=== PATIENT | male | born 1985 | race Caucasian/White ===

== ENCOUNTER 2017-10-13 18:53 | Emergency (ER) | payer OTHER, SELFPAY ==
[2017-10-13] MEDS ORDERED: Adacel Vial IM ONE ×2 (19:10→19:12)
--- NOTE | 2017-10-13 19:15 | ERPHSYRPT ---
- History of Present Illness Time Seen by Provider: 10/13/17 19:05 Source: patient Exam Limitations: no limitations Patient Subjective Stated Complaint: Laceration to tip of right index finger after getting caught in "fan blade" from a car. Triage Nursing Assessment: Pt presents to the ED with complaints of laceration to tip of right index finger. Pt states approximately 30 minutes ago. Bleeding controlled on arrival. No distress noted. No other complaints. Physician History: 32 y/o male comes to the ER after getting his right index finger stuck in a fan blade. Pt states that the cut is deep but there is no bleeding upon arriving. Pt denies any pain. Last tetanus shot was over 5 years ago. Timing/Duration: today Location: extremities Possible Causes: other (fan blade) Associated Symptoms: denies symptoms, No numbness, No paresthesia Allergies/Adverse Reactions: No Known Drug Allergies Allergy (Unverified 01/20/16 21:55) Home Medications: Acyclovir 800 mg PO .PRN 01/20/16 [History] Levetiracetam [Levetiracetam] 250 mg PO BID 10/13/17 [History] Hx Tetanus, Diphtheria Vaccination/Date Given: No Hx Influenza Vaccination/Date Given: No Hx Pneumococcal Vaccination/Date Given: No Immunizations Up to Date: No - Review of Systems Constitutional: No Fever, No Chills Eyes: No Symptoms Ears, Nose, & Throat: No Symptoms Respiratory: No Cough, No Dyspnea Cardiac: No Chest Pain, No Edema, No Syncope Abdominal/Gastrointestinal: No Abdominal Pain, No Nausea, No Vomiting, No Diarrhea Genitourinary Symptoms: No Dysuria Musculoskeletal: No Back Pain, No Neck Pain Skin: Other (finger laceration), No Rash Neurological: No Dizziness, No Focal Weakness, No Sensory Changes Psychological: No Symptoms Endocrine: No Symptoms All Other Systems: Reviewed and Negative - Past Medical History Pertinent Past Medical History: Yes Neurological History: Migraines ENT History: No Pertinent History Cardiac History: Arrhythmia Respiratory History: No Pertinent History Endocrine Medical History: No Pertinent History Musculoskeletal History: No Pertinent History GI Medical History: No Pertinent History History: No Pertinent History Psycho-Social History: No Pertinent History Male Reproductive Disorders: No Pertinent History Other Medical History: SEVEREAL SETS OF STITCHES - Past Surgical History Past Surgical History: Yes Neuro Surgical History: No Pertinent History Cardiac: No Pertinent History Respiratory: No Pertinent History Gastrointestinal: No Pertinent History Genitourinary: No Pertinent History Musculoskeletal: Orthopedic Surgery Male Surgical History: No Pertinent History Other Surgical History: tonsils - Social History Smoking Status: Current every day smoker How long have you smoked: 21 years Exposure to second hand smoke: Yes Drug Use: none Patient Lives Alone: No - Nursing Vital Signs Nursing Vital Signs: Initial Vital Signs Temperature 98.0 F 10/13/17 19:00 Pulse Rate 79 10/13/17 19:00 Respiratory Rate 16 10/13/17 19:00 Blood Pressure 155/90 10/13/17 19:00 O2 Sat by Pulse Oximetry 97 10/13/17 19:00 Pain Scale Pain Intensity 0 - Physical Exam General Appearance: no apparent distress, alert Eye Exam: PERRL/EOMI, eyes nml inspection Ears, Nose, Throat Exam: normal ENT inspection, pharynx normal, moist mucous membranes Neck Exam: normal inspection, non-tender, supple, full range of motion Respiratory Exam: normal breath sounds, lungs clear, No respiratory distress Cardiovascular Exam: regular rate/rhythm, normal heart sounds Gastrointestinal/Abdomen Exam: soft, mass, No tenderness Back Exam: normal inspection, normal range of motion, No CVA tenderness, No vertebral tenderness Extremity Exam: normal inspection, normal range of motion, lacerations (0.5 cm laceration tip of right index finger) Neurologic Exam: alert, oriented x 3, cooperative, normal mood/affect, sensation nml, No motor deficits Skin Exam: normal color, warm, dry SpO2: 97 Oxygen Delivery: Room Air Procedures - Laceration/Wound Repair Right Upper Anterior Proximal Volar Finger Wound Location: Right, hand Wound Length (cm): 0.5 Wound's Depth, Shape: superficial Wound Explored: contaminated Irrigated: Yes Hibiclens Prep: Yes Wound Debrided: moderate Wound Repaired With: Steri-strips, Dermabond Layer Closure?: Yes - Course Nursing assessment & vital signs reviewed: Yes - Progress Progress: improved Progress Note: 10/13/17 19:13 See Procedure Note. Pt has received a boostrix shot. - Departure Time of Disposition: 19:14 Departure Disposition: Home Clinical Impression: Finger laceration Qualifiers: Encounter type: initial encounter Finger: index finger Damage to nail status: without damage Foreign body presence: without foreign body Laterality: right Qualified Code(s): S61.210A - Laceration without foreign body of right index finger without damage to nail, initial encounter Condition: Stable Critical Care Time: No Referrals: ARIAS SCOTT MD [Primary Care Provider] - Instructions: Laceration Repair With Glue (DC) Additional Instructions: Return to the ER if you should have worsening pain, swelling, fever or chills.
[2017-10-13 19:29] VITALS: BP 122/74; PULSE 78; O2SAT 98
== END 2017-10-13 19:29 | disposition home or self-care (01) ==
LOC: ED 18:53
PROC: 0HQFXZZ Repair Right Hand Skin, External Approach (ICD-10-PCS; principal; 2017-10-13)
DX: S61.210A Laceration without foreign body of right index finger without damage to nail, initial encounter (principal); W26.8XXA Contact with other sharp object(s), not elsewhere classified, initial encounter
CPT/HCPCS: 12001; 90471; 90715; 99282; 99284

== ENCOUNTER 2018-09-24 20:13 | Emergency (ER) | payer OTHER ==
--- NOTE | 2018-09-24 20:25 | ERPHSYRPT ---
- History of Present Illness Time Seen by Provider: 09/24/18 20:24 Source: patient, family Exam Limitations: no limitations Physician History: 33 y/o white male presents with recurrent back pain. no acute injury. pt has chronic back pain. Timing/Duration: today Method of Injury: other (no injury) Back Pain Location: lumbar spine Back Pain Radiation: buttocks, upper legs Severity of Pain-Max: moderate Severity of Pain-Current: moderate Modifying Factors: Improves With: immobilization (helps) Associated Symptoms: lower back pain Previous symptoms: same symptoms as today Allergies/Adverse Reactions: No Known Drug Allergies Allergy (Unverified 01/20/16 21:55) Home Medications: Acyclovir 800 mg PO .PRN 01/20/16 [History] levETIRAcetam [Levetiracetam] 250 mg PO BID 10/13/17 [History] Hx Tetanus, Diphtheria Vaccination/Date Given: No Hx Influenza Vaccination/Date Given: No Hx Pneumococcal Vaccination/Date Given: No - Review of Systems Constitutional: No Symptoms Eyes: No Symptoms Ears, Nose, & Throat: No Symptoms Respiratory: No Symptoms Cardiac: No Symptoms Abdominal/Gastrointestinal: No Symptoms Genitourinary Symptoms: No Symptoms Musculoskeletal: Back Pain Skin: No Symptoms Neurological: No Symptoms Psychological: No Symptoms Endocrine: No Symptoms Hematologic/Lymphatic: No Symptoms Immunological/Allergic: No Symptoms All Other Systems: Reviewed and Negative - Past Medical History Pertinent Past Medical History: Yes Neurological History: Migraines, Seizures ENT History: No Pertinent History Cardiac History: No Pertinent History Respiratory History: No Pertinent History Endocrine Medical History: No Pertinent History Musculoskeletal History: Arthritis GI Medical History: No Pertinent History History: No Pertinent History Psycho-Social History: No Pertinent History Male Reproductive Disorders: No Pertinent History Other Medical History: Pt has very loose skin, he thinks he has an undiagnosed connective tissue disorder. He states he is going to be looking into this in the near future. - Past Surgical History Past Surgical History: Yes Neuro Surgical History: No Pertinent History Cardiac: No Pertinent History Respiratory: No Pertinent History Gastrointestinal: No Pertinent History Genitourinary: No Pertinent History Musculoskeletal: Orthopedic Surgery Male Surgical History: No Pertinent History Other Surgical History: tonsils - Social History Smoking Status: Current every day smoker How long have you smoked: 21 years Exposure to second hand smoke: Yes Drug Use: none Patient Lives Alone: No - Nursing Vital Signs Nursing Vital Signs: Initial Vital Signs Temperature 97.3 F 09/24/18 20:14 Pulse Rate 73 09/24/18 20:14 Respiratory Rate 20 09/24/18 20:14 Blood Pressure 149/86 09/24/18 20:14 O2 Sat by Pulse Oximetry 96 09/24/18 20:14 Pain Scale Pain Intensity [Posterior Back 8 ] Pain Intensity 8 - Physical Exam General Appearance: moderate distress, alert, anxiety Eye Exam: PERRL/EOMI Ears, Nose, Throat Exam: normal ENT inspection, moist mucous membranes Neck Exam: normal inspection, non-tender, supple, full range of motion Respiratory Exam: normal breath sounds, lungs clear, airway intact, No chest tenderness, No respiratory distress Gastrointestinal Exam: soft, No tenderness Back Exam: normal inspection, decreased range of motion, muscle spasm, No CVA tenderness, No vertebral tenderness Extremity Exam: normal inspection, normal range of motion, pelvis stable Neurologic Exam: alert, oriented x 3, cooperative, acetylene burner II-XII nml as tested Skin Exam: normal color, warm, dry Lymphatic Exam: No adenopathy SpO2 Interpretation: normal O2 Delivery: Room Air - Course Nursing assessment & vital signs reviewed: Yes Ordered Tests: Medication Summary Discontinued Medications Generic Name Dose Route Start Last Admin Trade Name Freq PRN Reason Stop Dose Admin Hydromorphone HCl 1 mg 09/24/18 20:48 09/24/18 21:08 Hydromorphone 1 Mg/Ml Ampule IM 09/24/18 20:49 1 mg STAT ONE Administration Hydromorphone HCl Confirm 09/24/18 20:58 Hydromorphone 1 Mg/Ml Ampule Administered 09/24/18 20:59 Dose 1 mg .ROUTE .STK-MED ONE Methylprednisolone Sodium Succinate 125 mg 09/24/18 20:48 09/24/18 21:09 Solu-Medrol 125 Mg IM 09/24/18 20:49 125 mg STAT ONE Administration Methylprednisolone Sodium Succinate Confirm 09/24/18 20:58 Solu-Medrol 125 Mg Administered 09/24/18 20:59 Dose 125 mg .ROUTE .STK-MED ONE Promethazine HCl 25 mg 09/24/18 20:48 09/24/18 21:07 Phenergan 25 Mg Inj IM 09/24/18 20:49 25 mg STAT ONE Administration Promethazine HCl Confirm 09/24/18 20:57 Phenergan 25 Mg Inj Administered 09/24/18 20:58 Dose 25 mg .ROUTE .STK-MED ONE - Progress Progress: pain not gone completely, re-examined Counseled pt/family regarding: diagnosis, need for follow-up - Departure Time of Disposition: 21:14 Departure Disposition: Home Clinical Impression: Chronic bilateral back pain Condition: Stable Critical Care Time: No Referrals: ARIAS SCOTT MD [Primary Care Provider] - Additional Instructions: follow up with primary doctor for further management including mri and referral to pain or back specialist Prescriptions: Oxycodone HCl/Acetaminophen [Percocet 5-325 mg Tablet] 1 each PO Q8H PRN PRN #9 tablet MDD 3 PRN Reason: Pain Cyclobenzaprine HCl 10 mg [Cyclobenzaprine 10 MG] 10 mg PO TID #10 tablet Prednisone 10 mg [Deltasone 10 mg] 10 mg PO TID #12 tablet
[2018-09-24] MEDS ORDERED: Hydromorphone 1 mg/ml Ampule IM ONE (20:48)
[2018-09-24] MEDS ORDERED: solu-MEDROL 125 MG IM ONE (20:48)
[2018-09-24] MEDS ORDERED: Phenergan 25 MG INJ IM ONE (20:48)
[2018-09-24] MEDS ORDERED: Phenergan 25 MG INJ ONE (20:57)
[2018-09-24] MEDS ORDERED: solu-MEDROL 125 MG ONE (20:58)
[2018-09-24] MEDS ORDERED: Hydromorphone 1 mg/ml Ampule ONE (20:58)
[2018-09-24 21:21] VITALS: BP 129/70; PULSE 65; O2SAT 100
== END 2018-09-24 21:36 | disposition home or self-care (01) ==
LOC: ED 20:13
DX: M54.5 Low back pain (principal); G89.29 Other chronic pain; F45.42 Pain disorder with related psychological factors; G40.909 Epilepsy, unspecified, not intractable, without status epilepticus
CPT/HCPCS: 96372; 99284; J1170; J2550; J2930

== ENCOUNTER 2018-11-23 13:26 | Emergency (ER) | payer OTHER ==
[2018-11-23] MEDS ORDERED: solu-MEDROL 125 MG IM ONE (14:53)
[2018-11-23] MEDS ORDERED: DUONEB 0.5-3 MG/3 ml Neb IH ONE ×2 (14:53→15:17)
--- NOTE | 2018-11-23 14:56 | ERPHSYRPT ---
- History of Present Illness Time Seen by Provider: 11/23/18 14:49 Source: patient Exam Limitations: no limitations Patient Subjective Stated Complaint: pain to throat since yesterday, Patient states he took cough medicine last night and he was able to sleep. Patient took cough med today with no releaf. Unproductive cough reported Triage Nursing Assessment: Patient ambulated to room with no difficulties noted. Patient with normal skin color. Percent non-productive cough noted Physician History: 33-year-old white male arrives with complaint of sore throat since yesterday states she's been coughing and wheezing since being recently in [place]. Patient states that he took some [id number] cough medicines but continues to cough. Past medical history includes migraines, seizures, arthritis. Past surgical history includes tonsillectomy. Timing/Duration: day(s) Activities at Onset: none Severity of Dyspnea-Max: moderate (3 days) Severity of Dyspnea-Current: moderate Possible Cause: no prior episodes Associated Symptoms: constant, cough, wheezing, No intermittent, No anxiety, No chest pain/discomfort, No edema, No fever, No insomnia, No loss of appetite, No lightheadedness, No weakness, No ankle swelling, No chills, No hemoptysis, No calf pain, No dizziness, No heaviness, No heart racing, No lightheadedness, No leg swelling, No muscle spasms feet, No muscle spasms hands, No painful breathing, No productive cough, No sweating, No tightness, No tingling face International travel in last 2 weeks: No Allergies/Adverse Reactions: No Known Drug Allergies Allergy (Unverified 01/20/16 21:55) Home Medications: Acyclovir 800 mg PO .PRN 01/20/16 [History] levETIRAcetam [Levetiracetam] 250 mg PO BID 10/13/17 [History] Hx Tetanus, Diphtheria Vaccination/Date Given: Yes Hx Influenza Vaccination/Date Given: No Hx Pneumococcal Vaccination/Date Given: No Immunizations Up to Date: Yes - Review of Systems Constitutional: No Fever, No Chills Eyes: No Symptoms Ears, Nose, & Throat: Throat Pain, No Ear Pain, No Ear Discharge, No Hearing Changes, No Tinnitus, No Nose Pain, No Nose Congestion, No Nose Discharge, No Sinus Drainage, No Epistaxis, No Mouth Pain, No Mouth Swelling, No Loose Teeth, No Throat Swelling Respiratory: Cough, Wheezing Cardiac: No Chest Pain, No Edema, No Syncope Abdominal/Gastrointestinal: No Abdominal Pain, No Nausea, No Vomiting, No Diarrhea Genitourinary Symptoms: No Dysuria Musculoskeletal: No Back Pain, No Neck Pain Skin: No Rash Neurological: No Dizziness, No Focal Weakness, No Sensory Changes Psychological: No Symptoms Endocrine: No Symptoms All Other Systems: Reviewed and Negative - Past Medical History Pertinent Past Medical History: Yes Neurological History: Migraines, Seizures ENT History: No Pertinent History Cardiac History: No Pertinent History Respiratory History: No Pertinent History Endocrine Medical History: No Pertinent History Musculoskeletal History: Arthritis GI Medical History: No Pertinent History History: No Pertinent History Psycho-Social History: No Pertinent History Male Reproductive Disorders: No Pertinent History Other Medical History: Pt has very loose skin, he thinks he has an undiagnosed connective tissue disorder. He states he is going to be looking into this in the near future. - Past Surgical History Past Surgical History: Yes Neuro Surgical History: No Pertinent History Cardiac: No Pertinent History Respiratory: No Pertinent History Gastrointestinal: No Pertinent History Genitourinary: No Pertinent History Musculoskeletal: No Pertinent History, Orthopedic Surgery Male Surgical History: No Pertinent History Other Surgical History: tonsils - Social History Smoking Status: Current every day smoker How long have you smoked: 25 years Exposure to second hand smoke: Yes Drug Use: none Patient Lives Alone: No - Nursing Vital Signs Nursing Vital Signs: Initial Vital Signs Temperature 98.3 F 11/23/18 13:40 Pulse Rate 88 11/23/18 13:40 Respiratory Rate 18 11/23/18 13:40 Blood Pressure 140/81 11/23/18 13:40 O2 Sat by Pulse Oximetry 95 11/23/18 13:40 Pain Scale Pain Intensity 4 - Physical Exam General Appearance: mild distress, alert Eye Exam: PERRL/EOMI, other (fundi unremarkable) Ears, Nose, Throat Exam: hearing grossly normal, normal ENT inspection, nasal congestion, pharyngeal erythema, No normal pharynx, No abnormal TM (R), No abnormal TM (L), No sinus pain/drainage, No hearing decreased, No tonsillar exudate, No tonsillar swelling Neck Exam: normal inspection, supple Respiratory Exam: diminished breath sounds, wheezing Cardiovascular/Chest Exam: normal heart sounds, regular rate/rhythm Abdominal/Gastrointestinal Exam: soft, No tenderness, No distention, No mass Extremity Exam: non-tender, normal range of motion, normal inspection, no calf tenderness, no pedal edema Peripheral Pulses Exam: dorsalis-pedis (R): 2+, dorsalis-pedis (L): 2+ Neurologic Exam: alert, oriented x 3, cooperative, budget consultant II-XII nml as tested, sensation nml, No motor deficits Skin Exam: normal color, warm, No dry SpO2 Interpretation: normal (94%) SpO2: 94 - Course Nursing assessment & vital signs reviewed: Yes Ordered Tests: Active Orders 24 hr Category Date Time Status CHEST 1 VIEW (PORTABLE) Stat Exams 11/23/18 14:53 Completed Peak Expiratory Flow Rate DAILY RT 11/23/18 15:21 Active Respiratory Therapy Assessment DAILY RT 11/24/18 15:21 Active Medication Summary Discontinued Medications Generic Name Dose Route Start Last Admin Trade Name Freq PRN Reason Stop Dose Admin Albuterol/Ipratropium 3 ml 11/23/18 14:53 11/23/18 15:21 Duoneb 0.5-3 Mg/3 Ml Neb IH 11/23/18 14:54 3 ml STAT ONE Administration Albuterol/Ipratropium Confirm 11/23/18 15:17 Duoneb 0.5-3 Mg/3 Ml Neb Administered 11/23/18 15:18 Dose 3 ml IH .STK-MED ONE Methylprednisolone Sodium Succinate 125 mg 11/23/18 14:53 11/23/18 15:06 Solu-Medrol 125 Mg IM 11/23/18 14:54 125 mg STAT ONE Administration Methylprednisolone Sodium Succinate Confirm 11/23/18 15:05 Solu-Medrol 125 Mg Administered 11/23/18 15:06 Dose 125 mg .ROUTE .STK-MED ONE Lab/Rad Data: Laboratory Results 11/23/18 11/23/18 Range/Units 15:00 14:51 Influenza Type A Ag NEGATIVE (NEGATIVE) Influenza Type B Ag NEGATIVE (NEGATIVE) RSV (PCR) NEGATIVE (Negative) Group A Strep Antibody NEGATIVE (NEGATIVE) - Progress Progress: improved Air Movement: fair Progress Note: 11/23/18 15:55 Patient feeling better after Solu-Medrol and DuoNeb treatment. Will go ahead and send patient home with amoxicillin, Solu-Medrol, albuterol inhaler. - Departure Departure Disposition: Home Clinical Impression: Shortness of breath, Bronchitis with bronchospasm Pharyngitis Qualifiers: Pharyngitis/tonsillitis etiology: unspecified etiology Qualified Code(s): J02.9 - Acute pharyngitis, unspecified Condition: Fair Critical Care Time: No Referrals: ARIAS SCOTT MD [Primary Care Provider] - Additional Instructions: Return home. Plenty of fluids. Amoxicillin as prescribed. Tapering dose of prednisone as prescribed. Albuterol inhaler 2 puffs every 4 hours as needed. Followup with your family Dr. symptoms are worse, no better in 48 hours, or persist longer than one week. Return for acute distress severe symptoms or for any problems. Prescriptions: Albuterol Common Canister [Proventil Common Canister] 2 puff IH Q4-6HPRN PRN #1 canister PRN Reason: shortness of breath, wheezing Amoxicillin 500 mg PO TID #30 capsule
[2018-11-23] MEDS ORDERED: solu-MEDROL 125 MG ONE (15:05)
--- NOTE | 2018-11-23 15:22 | XRAY ---
Indication: Cough. Comparison: May 03, 2011. Portable chest again demonstrates normal heart, lungs, and bony thorax with incidental calcified granulomas.
[2018-11-23 15:47] LABS: INFLUENZA A NEGATIVE (NEGATIVE); INFLUENZA B NEGATIVE (NEGATIVE); RESPIRATORY SYNCTIAL VIRUS NEGATIVE (Negative)
[2018-11-23 16:22] VITALS: BP 130/78; PULSE 88; O2SAT 98
== END 2018-11-23 16:20 | disposition home or self-care (01) ==
LOC: ED 13:26
DX: J40 Bronchitis, not specified as acute or chronic (principal); J98.01 Acute bronchospasm; J02.9 Acute pharyngitis, unspecified
CPT/HCPCS: 71045; 87631; 87651; 94150; 94640; 96372; 99284; J2930; A9270-GY

== ENCOUNTER 2019-05-31 22:41 | Emergency (ER) | payer OTHER ==
[2019-05-31] MEDS ORDERED: TORAdol 30 mg Injection IV ONE (22:53)
[2019-05-31] MEDS ORDERED: Zanaflex 4 MG PO ONE (22:54)
[2019-05-31] MEDS ORDERED: TORAdol 30 mg Injection ONE (23:05)
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
[2019-06-01 01:27] VITALS: BP 119/68; PULSE 55; O2SAT 99
--- NOTE | 2019-06-01 07:27 | XRAY ---
Indication: Right rib pain. History Andrea-Danlos. Multiple contiguous axial images obtained through the chest without contrast as ordered. Comparison: None Lungs demonstrate minimal bilateral dependent atelectasis and small right middle lobe calcified granuloma. No suspicious pulmonary mass, infiltrate, or effusion. Heart is not enlarged. [place] mediastinal lymph nodes, largest subcarinal. No pathologic mediastinal lymphadenopathy. Bony thorax intact. Limited upper abdomen is unremarkable. Impression: 1. Evidence for old granulomatous disease. 2. Remaining CT chest without contrast exam is negative. Comment: Preliminary interpretation was made by [facility]. No critical discrepancy. CTDI 6.94
== END 2019-06-01 01:27 | disposition home or self-care (01) ==
LOC: ED 22:41
DX: S23.420A Sprain of sternoclavicular (joint) (ligament), initial encounter (principal); X50.0XXA Overexertion from strenuous movement or load, initial encounter; I10 Essential (primary) hypertension; E78.00 Pure hypercholesterolemia, unspecified
CPT/HCPCS: 71250; 96374; 99284; J1885; A9270-GY

== ENCOUNTER 2019-08-09 14:28 | Emergency (ER) | payer OTHER ==
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
[2019-08-09 15:16] LABS: Absolute Neutrophil Ct (ANC) 3.09 (1.4-6.9); BASOPHIL % 0.4 % (0.0-0.4); Basophil (Absolute #) 0.03 (0-0.4); Eosinophil % 1.5 % (0.00-5.0); Eosinophil (Absolute #) 0.11 (0-0.5); Hematocrit 46.6 % (42-50); Lymphocyte (Absolute #) 3.23 (1.0-4.6); Mean Cell Volume 96.1 fl (78-100); Mean Corpuscular Hgb Concent. 34.3 g/dl (32-36); Mean Platelet Volume 9.6 fl (7.5-11.0); Monocyte (Absolute #) 0.71 (0.0-1.3); Monocytes % 9.9 % (0.0-12.0); Neutrophil % 43.2 % (36.0-66.0); Platelet Count 252 K/mm3 (150-450); Red Blood Count 4.85 M/mm3 (4.1-5.6); Red Cell Distribution Width 12.2 % (11.5-14.0); White Blood Count 7.2 K/mm3 (4.0-10.5)
[2019-08-09 15:26] LABS: ALBUMIN 4.6 g/dL (3.5-5.0); ALKALINE PHOSPHATASE 57 U/L (38-126); ANION GAP 17.7 MEQ/L (5-15); BLOOD UREA NITROGEN 13 mg/dL (9-20); CHLORIDE 105 mmol/L (98-107); Calcium 9.8 mg/dL (8.4-10.2); Carbon Dioxide 24 mmol/L (22-30); Creatinine 1 0.99 mg/dL (0.66-1.25); Glucose 103 mg/dL (74-106); MAGNESIUM 2.1 mg/dL (1.6-2.3); Potassium 3.9 mmol/L (3.5-5.1); SGOT/AST 32 U/L (17-59); SGPT/ALT 37 U/L (0-50); SODIUM 143 mmol/L (137-145); Total Protein 7.6 g/dL (6.3-8.2)
[2019-08-09 15:30] VITALS: BP 132/79; PULSE 72; O2SAT 96
== END 2019-08-09 15:36 | disposition home or self-care (01) ==
LOC: ED 14:28
DX: M62.838 Other muscle spasm (principal); R20.2 Paresthesia of skin
CPT/HCPCS: 36415; 80053; 83735; 85025; 99283

== ENCOUNTER 2019-09-05 20:35 | Emergency (ER) | payer OTHER ==
[2019-09-05 20:40] VITALS: O2SAT 97
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
[2019-09-05 21:02] VITALS: BP 137/84; PULSE 72
== END 2019-09-05 21:02 | disposition home or self-care (01) ==
LOC: ED 20:35
DX: S00.31XA Abrasion of nose, initial encounter (principal); W51.XXXA Accidental striking against or bumped into by another person, initial encounter
CPT/HCPCS: 99283

== ENCOUNTER 2020-01-19 14:26 | Emergency (ER) | payer OTHER ==
[2020-01-19 14:47] VITALS: BP 127/73; PULSE 84; O2SAT 97
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
== END 2020-01-19 15:22 | disposition home or self-care (01) ==
LOC: ED 14:26
DX: S91.114A Laceration without foreign body of right lesser toe(s) without damage to nail, initial encounter (principal); W25.XXXA Contact with sharp glass, initial encounter; Y93.01 Activity, walking, marching and hiking; Y92.89 Other specified places as the place of occurrence of the external cause
CPT/HCPCS: 12001; 99283

== ENCOUNTER 2020-04-04 00:37 | Emergency (ER) | payer OTHER ==
[2020-04-04] MEDS ORDERED: TETRACAINE 0.5% STERI-UNIT SOL OP STA (01:13)
[2020-04-04] MEDS ORDERED: TETRACAINE 0.5% STERI-UNIT SOL OP ONE (01:16)
[2020-04-04] MEDS ORDERED: Norco 10/325 MG Tablet PO ONE (01:42)
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
[2020-04-04] MEDS ORDERED: DELTASONE 20 MG PO ONE (01:43)
[2020-04-04] MEDS ORDERED: Erythromycin 1 GM OP STA (01:44)
[2020-04-04] MEDS ORDERED: DELTASONE 20 MG ONE (02:07)
[2020-04-04] MEDS ORDERED: Erythromycin 1 GM ONE (02:07)
[2020-04-04] MEDS ORDERED: Norco 10/325 MG Tablet ONE (02:08)
[2020-04-04 02:15] VITALS: BP 128/81; PULSE 68; O2SAT 98
== END 2020-04-04 02:25 | disposition home or self-care (01) ==
LOC: ED 00:37
DX: T15.01XA Foreign body in cornea, right eye, initial encounter (principal); W45.8XXA Other foreign body or object entering through skin, initial encounter; W29.8XXA Contact with other powered hand tools and household machinery, initial encounter; Y93.89 Activity, other specified; Y92.9 Unspecified place or not applicable
CPT/HCPCS: 99283; A9270-GY

== ENCOUNTER 2020-10-24 17:36 | Emergency (ER) | payer OTHER ==
[2020-10-24 18:40] VITALS: BP 126/80; PULSE 69; O2SAT 97
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
--- NOTE | 2020-10-24 20:07 | XRAY ---
Indication: Chest pain. Comparison: November 23, 2018. PA/lateral chest again demonstrates normal heart, lungs, and bony thorax with incidental mediastinal/hilar/pulmonary calcified granulomas.
== END 2020-10-24 19:10 | disposition home or self-care (01) ==
LOC: ED 17:36
DX: S20.219A Contusion of unspecified front wall of thorax, initial encounter (principal); W22.8XXA Striking against or struck by other objects, initial encounter; Y93.89 Activity, other specified; Y92.481 Parking lot as the place of occurrence of the external cause; Y99.0 Civilian activity done for income or pay
CPT/HCPCS: 71046; 99283

== ENCOUNTER 2020-12-22 18:45 | Emergency (ER) | payer OTHER ==
[2020-12-22 19:03] VITALS: O2SAT 97
[2020-12-22 19:50] LABS: Absolute Neutrophil Ct (ANC) 3.79 (1.4-6.9); BASOPHIL % 0.3 % (0.0-0.4); Basophil (Absolute #) 0.03 (0-0.4); Eosinophil % 1.6 % (0.00-5.0); Eosinophil (Absolute #) 0.17 (0-0.5); Hematocrit 42.3 % (42-50); Lymphocyte (Absolute #) 5.59 (1.0-4.6); Mean Cell Volume 95.1 fl (78-100); Mean Corpuscular Hemoglobin 31.5 pg (26-32); Mean Corpuscular Hgb Concent. 33.1 g/dl (32-36); Mean Platelet Volume 9.6 fl (7.5-11.0); Monocyte (Absolute #) 0.77 (0.0-1.3); Monocytes % 7.4 % (0.0-12.0); Neutrophil % 36.7 % (36.0-66.0); Platelet Count 282 K/mm3 (150-450); Red Blood Count 4.45 M/mm3 (4.1-5.6); Red Cell Distribution Width 11.9 % (11.5-14.0); White Blood Count 10.4 K/mm3 (4.0-10.5)
[2020-12-22 19:56] LABS: INR 0.92 (0.8-3.0); PROTIME 10.8 SECONDS (9.4-12.5)
[2020-12-22] MEDS ORDERED: NORCO 5/325 MG PO ONE (19:59)
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
[2020-12-22] MEDS ORDERED: NORCO 5/325 MG ONE (20:15)
[2020-12-22 20:29] VITALS: BP 149/89; PULSE 55
[2020-12-22 21:57] LABS: Slide Review 1 YES
== END 2020-12-22 20:25 | disposition home or self-care (01) ==
LOC: ED 18:45
DX: M79.672 Pain in left foot (principal); M79.671 Pain in right foot
CPT/HCPCS: 36415; 85025; 85610; 99283; A9270-GY

== ENCOUNTER 2021-03-12 19:27 | Emergency (ER) | payer OTHER ==
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
[2021-03-12 20:40] LABS: Absolute Neutrophil Ct (ANC) 7.98 (1.4-6.9); BASOPHIL % 0.4 % (0.0-0.4); Basophil (Absolute #) 0.05 (0-0.4); Eosinophil % 1.1 % (0.00-5.0); Eosinophil (Absolute #) 0.14 (0-0.5); Hematocrit 46.6 % (42-50); Hemoglobin 15.6 gm/dl (12.5-18.0); Lymphocyte (Absolute #) 3.33 (1.0-4.6); Lymphocytes % 26.5 % (24.0-44.0); Mean Cell Volume 95.7 fl (78-100); Mean Corpuscular Hgb Concent. 33.5 g/dl (32-36); Monocyte (Absolute #) 1.07 (0.0-1.3); Monocytes % 8.5 % (0.0-12.0); Neutrophil % 63.5 % (36.0-66.0); Platelet Count 280 K/mm3 (150-450); Red Blood Count 4.87 M/mm3 (4.1-5.6); Red Cell Distribution Width 12.5 % (11.5-14.0); White Blood Count 12.6 K/mm3 (4.0-10.5)
[2021-03-12 20:45] LABS: ALBUMIN 4.5 g/dL (3.5-5.0); ALKALINE PHOSPHATASE 62 U/L (38-126); ANION GAP 13.8 MEQ/L (5-15); BLOOD UREA NITROGEN 21 mg/dL (9-20); CHLORIDE 102 mmol/L (98-107); Calcium 9.5 mg/dL (8.4-10.2); Carbon Dioxide 27 mmol/L (22-30); Creatinine 1 0.93 mg/dL (0.66-1.25); EST GLOMERULAR FILTRATION RATE > 60.0 ML/MIN; Glucose 92 mg/dL (74-106); SGOT/AST 26 U/L (17-59); SGPT/ALT 25 U/L (0-50); SODIUM 139 mmol/L (137-145)
[2021-03-12] MEDS ORDERED: Hydromorphone 1 mg/ml Injection IV ONE (21:45)
[2021-03-12] MEDS ORDERED: Zofran 4 MG/2 ML VIAL IV ONE (21:45)
[2021-03-12 22:20] LABS: Appearance SLIGHTLY CLOUDY (CLEAR); Bilirubin NEGATIVE (NEGATIVE); Blood NEGATIVE Ery/ul (0-5); Glucose NEGATIVE (NEGATIVE); Ketones NEGATIVE (NEGATIVE); Leukocyte Esterase NEGATIVE (NEGATIVE); Mucus SLIGHT /HPF (NEGATIVE); Nitrite NEGATIVE (NEGATIVE); Protein,Urine Dip NEGATIVE (Negative); Specific Gravity 1.025 (1.005-1.025); Urobilinogen 2 mg/dL (0-1)
[2021-03-12 22:24] LABS: Amphetamine,Urine NEGATIVE (NEGATIVE); Barbiturate,Urine NEGATIVE (NEGATIVE); Benzodiazepine,Urine NEGATIVE (NEGATIVE); Cocaine,Urine NEGATIVE (NEGATIVE); Methadone,Urine NEGATIVE (NEGATIVE); Opiate,Urine NEGATIVE (NEGATIVE); PCP,Urine NEGATIVE (NEGATIVE); THC,Urine NEGATIVE (NEGATIVE)
[2021-03-12 22:27] LABS: INFLUENZA A NEGATIVE (NEGATIVE); INFLUENZA B NEGATIVE (NEGATIVE)
[2021-03-12] MEDS ORDERED: Hydromorphone 1 mg/ml Injection ONE (22:27)
[2021-03-12] MEDS ORDERED: Zofran 4 MG/2 ML VIAL ONE (22:27)
[2021-03-12 23:31] VITALS: BP 118/64; PULSE 68; O2SAT 95
--- NOTE | 2021-03-13 08:45 | XRAY ---
Indication: New onset seizure. Headache. No known injury. Multiple contiguous axial images obtained through the head without contrast. Comparison: May 22, 2014. Normal appearing brain parenchyma, ventricles, and bony calvarium. Visualized paranasal sinuses and mastoid air cells are clear. Impression: Continued normal CT head without contrast exam.
== END 2021-03-12 23:51 | disposition home or self-care (01) ==
LOC: ED 19:27
DX: G40.909 Epilepsy, unspecified, not intractable, without status epilepticus (principal); R51.9 Headache, unspecified; I10 Essential (primary) hypertension; E78.5 Hyperlipidemia, unspecified; F17.200 Nicotine dependence, unspecified, uncomplicated; Z91.14 Patient's other noncompliance with medication regimen; Z79.899 Other long term (current) drug therapy; Z20.822 Contact with and (suspected) exposure to COVID-19
CPT/HCPCS: 36000; 36415; 70450; 80053; 80307; 81001; 83605; 85025; 86308; 87400; 94760; 96374; 99284; U0003; J1170; J2405

== ENCOUNTER 2022-11-07 15:36 | Emergency (ER) | payer OTHER ==
[2022-11-07] MEDS ORDERED: HYDROCODONE-ACETAMIN 10-325 MG PO ONE (16:11)
[2022-11-07 16:16] VITALS: BP 131/96; PULSE 72; O2SAT 96
--- NOTE | 2022-11-07 16:30 | ERPHSYRPT ---
- History of Present Illness Time Seen by Provider: 11/07/22 15:59 Source: patient Exam Limitations: no limitations Patient Subjective Stated Complaint: Right ankle injury Triage Nursing Assessment: Patient brought back to ED per w/c and transferred self to bed. Patient A+O X 3. Patient's skin pink, warm and dry. Patient complains of right ankle pain after falling off of the porch. Patient's right ankle noted to be swollen. Patient complains of pain 8/10. Physician History: Right ankle pain. Patient fell just prior to arrival. No other injuries. 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 Therefore he does twist his ankle a lot. Allergies/Adverse Reactions: hydromorphone [From Dilaudid] Allergy (Verified 11/07/22 16:02) Home Medications: Acyclovir 800 mg PO BID 01/20/16 [History] levETIRAcetam [Levetiracetam] 750 mg PO BID 10/13/17 [History] Loratadine [Claritin] 10 mg PO DAILY 05/31/19 [History] Losartan Potassium 25 mg PO DAILY 05/31/19 [History] Metoprolol Tartrate 25 mg PO DAILY 05/31/19 [History] Omeprazole 20 mg PO BID 05/31/19 [History] buPROPion HCL [Bupropion HCl ER] 150 mg PO BID 05/31/19 [History] Atorvastatin Calcium 20 mg PO HS 03/12/21 [History] Calcium Carbonate/Vitamin D3 [Calcium 500 mg-Vit D3 600 Unit] 1 tab PO BID 11/07/22 [History] Hydrocodone/Acetaminophen [Hydrocodone-Acetamin 5-325 mg] 1 tab PO TID 11/07/22 [History] Pramipexole Di-HCl [Pramipexole Dihydrochloride] 1 tab PO DAILY 11/07/22 [History] Ubidecarenone [Co Q-10] 100 mg PO DAILY 11/07/22 [History] Hx Tetanus, Diphtheria Vaccination/Date Given: Yes Hx Influenza Vaccination/Date Given: No Hx Pneumococcal Vaccination/Date Given: No Travel Risk - International Travel Have you traveled outside of the country in past 3 weeks: No - Coronavirus Screening Are you exhibiting any of the following symptoms?: No Close contact with a COVID-19 positive Pt in past 14-21 Days: No - Vaccine Status Have you recieved a Covid-19 vaccination: No 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 - Vaccination Dates Date of 2cond Vaccination (if applicable): has not had yet - Review of Systems Constitutional: No Fever, No Chills Eyes: No Symptoms Ears, Nose, & Throat: No Symptoms Respiratory: No Cough, No Dyspnea Cardiac: No Chest Pain, No Edema, No Syncope Abdominal/Gastrointestinal: No Abdominal Pain, No Nausea, No Vomiting, No Diarrhea Genitourinary Symptoms: No Dysuria Musculoskeletal: No Back Pain, No Neck Pain Skin: No Rash Neurological: No Dizziness, No Focal Weakness, No Sensory Changes Psychological: No Symptoms Endocrine: No Symptoms All Other Systems: Reviewed and Negative - Past Medical History Pertinent Past Medical History: Yes Neurological History: Peripheral Neuropathy, Seizures ENT History: No Pertinent History Cardiac History: Arrhythmia, High Cholesterol, Hypertension Respiratory History: No Pertinent History Endocrine Medical History: No Pertinent History Musculoskeletal History: Arthritis GI Medical History: Hernia History: No Pertinent History Psycho-Social History: Anxiety, Depression Male Reproductive Disorders: No Pertinent History Other Medical History: 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 REPORTS SLIPPED DISK AT L4,L5, AND S1 (UNDERWENT PT FOR LE STRENGTHENING WITH SUCCESS). - Past Surgical History Past Surgical History: Yes Neuro Surgical History: No Pertinent History Cardiac: No Pertinent History Respiratory: No Pertinent History Gastrointestinal: No Pertinent History Genitourinary: No Pertinent History Musculoskeletal: No Pertinent History, Orthopedic Surgery Male Surgical History: No Pertinent History Other Surgical History: tonsils - Social History Smoking Status: Current every day smoker How long have you smoked: 25 Exposure to second hand smoke: Yes Drug Use: none Patient Lives Alone: No - Nursing Vital Signs Nursing Vital Signs: Initial Vital Signs Temperature 97.9 F 11/07/22 16:11 Pulse Rate 72 11/07/22 16:11 Respiratory Rate 18 11/07/22 16:11 Blood Pressure 131/96 11/07/22 16:11 O2 Sat by Pulse Oximetry 96 11/07/22 16:11 Pain Scale Pain Intensity 10 - Physical Exam General Appearance: no apparent distress, alert Eye Exam: PERRL/EOMI, eyes nml inspection Ears, Nose, Throat Exam: normal ENT inspection, pharynx normal, moist mucous membranes Neck Exam: normal inspection, non-tender, supple, full range of motion Respiratory Exam: normal breath sounds, lungs clear, No respiratory distress Cardiovascular Exam: regular rate/rhythm, normal heart sounds, normal peripheral pulses Gastrointestinal/Abdomen Exam: soft, normal bowel sounds, No tenderness, No mass Back Exam: normal inspection, normal range of motion, No CVA tenderness, No vertebral tenderness Extremity Exam: normal inspection, normal range of motion, pelvis stable Neurologic Exam: alert, oriented x 3, cooperative, normal mood/affect, nml cerebellar function, nml station & gait, sensation nml, No motor deficits Skin Exam: normal color, warm, dry, No rash Lymphatic Exam: No adenopathy SpO2: 96 Comments: 11/07/22 17:44 Right ankle lateral tenderness with some swelling. No obvious deformity, sensation intact, 2+ capillary refill, 2 point tactile discrimination intact. 5 out of 5 strength. Full range of motion without pain. Compartments are soft, nontender. Overlying skin shows no tenting, bruising, ecchymosis. - Course Nursing assessment & vital signs reviewed: Yes Ordered Tests: Active Orders 24 hr Category Date Time Status ANKLE (3 VIEWS) Stat Exams 11/07/22 16:11 Taken Medication Summary Discontinued Medications Generic Name Dose Route Start Last Admin Trade Name Randi PRN Reason Stop Dose Admin Hydrocodone Bitart/Acetaminophen 1 tablet 11/07/22 16:11 11/07/22 16:33 Hydrocodone/Acetamin 10-325 Mg Tablet PO 11/07/22 16:12 1 tablet STAT ONE Administration Hydrocodone Bitart/Acetaminophen Confirm 11/07/22 16:33 Hydrocodone/Acetamin 10-325 Mg Tablet Administered 11/07/22 16:34 Dose 1 tablet .ROUTE .STK-MED ONE - Progress Progress: improved Progress Note: 11/07/22 17:44 X-ray demonstrates no fracture - my read Patient will need repeat XRs in one week, if pain continues. Return here or see PCP. Medical Desision Making - Diagnostic Testing Diagnostic test were ordered, analyzed, and reviewed by me: Yes Radiological Interpretation: Interpreted by me - Departure Departure Disposition: Home Clinical Impression: Right ankle sprain Condition: Stable Critical Care Time: No Referrals: MONE LEI, [Primary Care Provider] - Follow up/PCP as directed Instructions: Ankle Sprain (DC)
[2022-11-07] MEDS ORDERED: HYDROCODONE-ACETAMIN 10-325 MG ONE (16:33)
--- NOTE | 2022-11-07 18:47 | XRAY ---
Indication: Swelling following fall. Comparison: None 3 view right ankle demonstrates anterior lateral soft tissue swelling. No other bony, articular, or soft tissue abnormalities.
== END 2022-11-07 16:48 | disposition home or self-care (01) ==
LOC: ED 15:36
DX: S93.401A Sprain of unspecified ligament of right ankle, initial encounter (principal); W19.XXXA Unspecified fall, initial encounter; Q79.60 Ehlers-Danlos syndrome, unspecified; E78.5 Hyperlipidemia, unspecified; I10 Essential (primary) hypertension; Z79.891 Long term (current) use of opiate analgesic; Z79.899 Other long term (current) drug therapy; Z72.0 Tobacco use
CPT/HCPCS: 73610; 99282; A9270-GY

== ENCOUNTER 2023-01-29 16:56 | Emergency (ER) | payer OTHER ==
[2023-01-29 17:21] VITALS: BP 154/104; PULSE 77; RESP 18; TEMP 97.7; O2SAT 96
--- NOTE | 2023-01-29 17:21 | ERPHSYRPT ---
- History of Present Illness Time Seen by Provider: 01/29/23 17:21 Source: patient Exam Limitations: no limitations Patient Subjective Stated Complaint: C/O right sided tooth, face, jaw pain. Patient states he is taking an antibiotic for the infection and has an appointment with a dentist in about a week. Patient is afraid the atb isn't working and doesn't think he can wait until he sees the dentist in a week. Triage Nursing Assessment: Patient is alert, anxious, angry. Patient's right jaw/cheek is swollen. Patient is able to speak and swallow without difficulties. No SOB. Physician History: This is a 37-year-old white male patient who has a history of hypertension gastroesophageal reflux disease and has chronic pain issues. He is on [place] chronically as well as pain patch and gabapentin. Patient has been taking penicillin VK for right sided dental infection. He does not feel that it is working. He does not have an appointment see his dentist for approximately 2 weeks. Patient would like an injection of antibiotics plus change his outpatient antibiotic medication. I think this is reasonable. Patient was told by me that there is no reason to provide him with any narcotic pain medicine since he is on a pain patch, gabapentin and has [place] pain medication at home. If there are no contraindications, he was told to add ibuprofen to his pain regimen. He has some right facial swelling that is visible but mild. Timing/Duration: gradual onset Severity: mild ENT Location: facial (Right side), dental (Right upper dental infection) Prearrival Treatment: prescription meds Associated Symptoms: tooth pain (Right upper) Allergies/Adverse Reactions: hydromorphone [From Dilaudid] Allergy (Verified 01/29/23 17:07) Home Medications: Acyclovir 800 mg PO BID 01/20/16 [History] levETIRAcetam [Levetiracetam] 750 mg PO BID 10/13/17 [History] Loratadine [Claritin] 10 mg PO DAILY 05/31/19 [History] Losartan Potassium 25 mg PO DAILY 05/31/19 [History] Metoprolol Tartrate 25 mg PO DAILY 05/31/19 [History] Omeprazole 20 mg PO BID 05/31/19 [History] buPROPion HCL [Bupropion HCl ER] 150 mg PO BID 05/31/19 [History] Atorvastatin Calcium 20 mg PO HS 03/12/21 [History] Calcium Carbonate/Vitamin D3 [Calcium 500 mg-Vit D3 600 Unit] 1 tab PO BID 11/07/22 [History] Hydrocodone/Acetaminophen [Hydrocodone-Acetamin 5-325 mg] 1 tab PO TID 11/07/22 [History] Pramipexole Di-HCl [Pramipexole Dihydrochloride] 1 tab PO DAILY 11/07/22 [History] Ubidecarenone [Co Q-10] 100 mg PO DAILY 11/07/22 [History] Hx Tetanus, Diphtheria Vaccination/Date Given: Yes Hx Influenza Vaccination/Date Given: No Hx Pneumococcal Vaccination/Date Given: No Immunizations Up to Date: Yes Travel Risk - International Travel Have you traveled outside of the country in past 3 weeks: No - Coronavirus Screening Are you exhibiting any of the following symptoms?: No Close contact with a COVID-19 positive Pt in past 14-21 Days: No - Vaccine Status Have you recieved a Covid-19 vaccination: No 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 There is mild right facial swelling present. This is in the right cheek area) Respiratory: No Symptoms Cardiac: No Symptoms Abdominal/Gastrointestinal: No Symptoms Genitourinary Symptoms: No Symptoms Musculoskeletal: No Symptoms Skin: No Symptoms Neurological: No Symptoms Psychological: No Symptoms Endocrine: No Symptoms Hematologic/Lymphatic: No Symptoms Immunological/Allergic: No Symptoms All Other Systems: Reviewed and Negative - Past Medical History Pertinent Past Medical History: Yes Neurological History: Peripheral Neuropathy, Seizures ENT History: No Pertinent History Cardiac History: Arrhythmia, High Cholesterol, Hypertension Respiratory History: No Pertinent History Endocrine Medical History: No Pertinent History Musculoskeletal History: Arthritis GI Medical History: Hernia History: No Pertinent History Psycho-Social History: Anxiety, Depression Male Reproductive Disorders: No Pertinent History Other Medical History: 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 REPORTS SLIPPED DISK AT L4,L5, AND S1 (UNDERWENT PT FOR LE STRENGTHENING WITH SUCCESS). - Past Surgical History Past Surgical History: Yes Neuro Surgical History: No Pertinent History Cardiac: No Pertinent History Respiratory: No Pertinent History Gastrointestinal: No Pertinent History Genitourinary: No Pertinent History Musculoskeletal: No Pertinent History, Orthopedic Surgery Male Surgical History: No Pertinent History Other Surgical History: tonsils - Social History Smoking Status: Current every day smoker How long have you smoked: 25 Exposure to second hand smoke: Yes Drug Use: none Patient Lives Alone: No - Nursing Vital Signs Nursing Vital Signs: Initial Vital Signs Temperature 97.7 F 01/29/23 17:07 Pulse Rate 77 01/29/23 17:07 Respiratory Rate 18 01/29/23 17:07 Blood Pressure 154/104 01/29/23 17:07 O2 Sat by Pulse Oximetry 96 01/29/23 17:07 Pain Scale Pain Intensity 10 - Physical Exam General Appearance: no apparent distress, alert, anxiety Eye Exam: bilateral eye: normal inspection, PERRL, EOMI Ear Exam: bilateral ear: auricle normal Nasal Exam: normal inspection Throat Exam: normal, pharynx normal, dental tenderness (Right upper), moist mucus membranes Neck Exam: normal inspection, non-tender, supple, full range of motion, trachea midline Cardiovascular/Respiratory Exam: chest non-tender, no respiratory distress Abdominal Exam: non-tender Neurologic Exam: alert, oriented x 3, cooperative, half section 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 II-XII 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 as tested, normal mood/affect, nml cerebellar function, nml station & gait, sensation nml Skin Exam: normal color, warm, dry SpO2 Interpretation: normal SpO2: 96 O2 Delivery: Room Air - Course Nursing assessment & vital signs reviewed: Yes Ordered Tests: Medication Summary Discontinued Medications Generic Name Dose Route Start Last Admin Trade Name Sesarq PRN Reason Stop Dose Admin Ceftriaxone Sodium 1,000 mg 01/29/23 17:46 01/29/23 17:50 Ceftriaxone Sodium 1000 Mg Inj Vial IM 01/29/23 17:47 1,000 mg STAT ONE Administration Ceftriaxone Sodium Confirm 01/29/23 17:49 Ceftriaxone Sodium 1000 Mg Inj Vial Administered 01/29/23 17:50 Dose 1,000 mg .ROUTE .STK-MED ONE Lidocaine HCl Confirm 01/29/23 17:49 Lidocaine Hcl 1% 20 Ml Mdv 20 Ml Ml Administered 01/29/23 17:50 Dose 3 ml .ROUTE .STK-MED ONE - Progress Progress: unchanged Progress Note: 01/29/23 17:57 Patient's medical issue is 1 of low complexity. Level complexity in the work-up performed is based on review of the patient's past medical history, review of the patient's medication list, review of the patient's drug allergy list, history present illness and physical findings on examination. This patient's work-up does not include laboratory or radiographic studies. We will inject him with 1 g of Rocephin intramuscularly. We will have him stop his penicillin VK antibiotic and change to Keflex 500 mg 3 times a day for 1 week. Patient states that Keflex works far better for his dental infections then penicillin VK. Patient has outpatient narcotic medication he can use. He is to follow-up with his dentist for further evaluation management Counseled pt/family regarding: diagnosis, need for follow-up Medical Desision Making - Independent Historian Additional History obtained from: Spouse - Diagnostic Testing Diagnostic test were ordered, analyzed, and reviewed by me: No - Risk of complications Low Risk: Low risk of morbidity from additional dx testing or treatment - Departure Departure Disposition: Home Clinical Impression: Dental infection Condition: Stable Critical Care Time: No Referrals: MONE LEI DO [Primary Care Provider] - Follow up/PCP as directed Additional Instructions: Stop your penicillin VK antibiotic. Continue using your [place], pain patch and gabapentin as prescribed. Take your new antibiotics as prescribed. Call your dentist on 01/31/2023 to make arrangements for an earlier appointment if possible. Prescriptions: Cephalexin Mh 500 mg [Keflex 500 mg] 500 mg PO TID #21 cap
[2023-01-29] MEDS ORDERED: Rocephin 1000 MG INJ IM ONE (17:46)
[2023-01-29] MEDS ORDERED: Rocephin 1000 MG INJ ONE (17:49)
[2023-01-29] MEDS ORDERED: XYLOCAINE 1% HCL 20 ML MDV ONE (17:49)
== END 2023-01-29 18:09 | disposition home or self-care (01) ==
LOC: ED 16:56
DX: K04.7 Periapical abscess without sinus (principal); I10 Essential (primary) hypertension; E78.5 Hyperlipidemia, unspecified; Z79.891 Long term (current) use of opiate analgesic; Z79.899 Other long term (current) drug therapy; Z72.0 Tobacco use
CPT/HCPCS: 96372; 99282; J0696

== ENCOUNTER 2023-05-06 21:13 | Emergency (ER) | payer OTHER ==
[2023-05-06 21:36] VITALS: RESP 20; TEMP 97.8
--- NOTE | 2023-05-06 21:38 | ERPHSYRPT ---
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 He presents with a complaint of pain and a subungual hematoma taking may be 20% of the nail.He has no other injuries or complaints. Occurred: just prior to arrival Method of Injury: other (Potential injury to the end of the left ring finger.) Quality: throbbing Extremities Pain Location: 4th finger: left Modifying Factors: Improves With: nothing Allergies/Adverse Reactions: hydromorphone [From Dilaudid] Adverse Reaction (Verified 05/06/23 21:18) Home Medications: Acyclovir 800 mg PO BID 01/20/16 [History] levETIRAcetam [Levetiracetam] 1,000 mg PO BID 10/13/17 [History] Loratadine [Claritin] 10 mg PO DAILY 05/31/19 [History] Losartan Potassium 25 mg PO DAILY 05/31/19 [History] Metoprolol Tartrate 25 mg PO DAILY 05/31/19 [History] Omeprazole 20 mg PO BID 05/31/19 [History] buPROPion HCL [Bupropion HCl ER] 150 mg PO BID 05/31/19 [History] Atorvastatin Calcium 40 mg PO HS 03/12/21 [History] Calcium Carbonate/Vitamin D3 [Calcium 500 mg-Vit D3 600 Unit] 1 tab PO BID 11/07/22 [History] Hydrocodone/Acetaminophen [Hydrocodone-Acetamin 5-325 mg] 1 tab PO TID 11/07/22 [History] Pramipexole Di-HCl [Pramipexole Dihydrochloride] 1 tab PO DAILY 11/07/22 [History] Ubidecarenone [Co Q-10] 100 mg PO DAILY 11/07/22 [History] Buprenorphine [Butrans] 1 patch TOP WEEKLY 05/06/23 [History] Hx Tetanus, Diphtheria Vaccination/Date Given: Yes Hx Influenza Vaccination/Date Given: No Hx Pneumococcal Vaccination/Date Given: No Travel Risk - Vaccine Status Have you recieved a Covid-19 vaccination: No Box Bender: 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 - Vaccination Dates Date of 2cond Vaccination (if applicable): Never received - Review of Systems Constitutional: No Fever, No Chills Eyes: No Symptoms Ears, Nose, & Throat: No Symptoms Respiratory: No Cough, No Dyspnea Cardiac: No Chest Pain, No Edema, No Syncope Abdominal/Gastrointestinal: No Abdominal Pain, No Nausea, No Vomiting, No Diarrhea Genitourinary Symptoms: No Dysuria Musculoskeletal: Joint Pain (Left ring finger), No Back Pain, No Neck Pain Skin: No Rash Neurological: No Dizziness, No Focal Weakness, No Sensory Changes Psychological: No Symptoms Endocrine: No Symptoms All Other Systems: Reviewed and Negative - Past Medical History Pertinent Past Medical History: Yes Neurological History: Peripheral Neuropathy, Seizures ENT History: No Pertinent History Cardiac History: Arrhythmia, High Cholesterol, Hypertension Respiratory History: No Pertinent History Endocrine Medical History: No Pertinent History Musculoskeletal History: Arthritis GI Medical History: Hernia History: No Pertinent History Psycho-Social History: Anxiety, Depression Male Reproductive Disorders: No Pertinent History Other Medical History: 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 REPORTS SLIPPED DISK AT L4,L5, AND S1 (UNDERWENT PT FOR LE STRENGTHENING WITH SUCCESS). - Past Surgical History Past Surgical History: Yes Neuro Surgical History: No Pertinent History Cardiac: No Pertinent History Respiratory: No Pertinent History Gastrointestinal: No Pertinent History Genitourinary: No Pertinent History Musculoskeletal: No Pertinent History, Orthopedic Surgery Male Surgical History: No Pertinent History Other Surgical History: tonsils - Social History Smoking Status: Current every day smoker How long have you smoked: 25 Exposure to second hand smoke: Yes Drug Use: none Patient Lives Alone: No - Nursing Vital Signs Nursing Vital Signs: Initial Vital Signs Temperature 97.8 F 05/06/23 21:23 Pulse Rate 81 05/06/23 21:23 Respiratory Rate 20 05/06/23 21:23 Blood Pressure 128/76 05/06/23 21:23 O2 Sat by Pulse Oximetry 96 05/06/23 21:23 Pain Scale Pain Intensity 4 - Physical Exam General Appearance: mild distress, alert Eyes, Ears, Nose, Throat Exam: normal ENT inspection, moist mucous membranes Neck Exam: non-tender, supple, full range of motion Cardiovascular/Respiratory Exam: no respiratory distress Shoulder Exam: normal inspection, non-tender, no evidence of injury Elbow/Forearm Exam: normal inspection, non-tender, no evidence of injury Wrist Exam: normal inspection, non-tender, no evidence of injury Hand Exam: nail injury (Subungual hematoma left ring finger) Neuro/Tendon Exam: normal sensation, normal motor functions, normal tendon functions Mental Status Exam: alert, oriented x 3 Skin Exam: normal color, warm, dry SpO2 Interpretation: normal O2 Delivery: Room Air Procedures - Nail Trephination Time of Procedure: 22:21 Nail Trephination Location: Left ring finger Method of Drainage: nail cauterized Sterile Dressing Applied: Yes Finger Splint: No - Course Nursing assessment & vital signs reviewed: Yes - Radiology Exams Left Hand X-ray Interpretation: Interpreted by me, Reviewed by me Ordered Tests: Active Orders 24 hr Category Date Time Status HAND (MINIMUM 3 VIEWS) Stat Exams 05/06/23 21:19 Completed - Progress Progress: improved Medical Desision Making - Independent Historian Additional History obtained from: Spouse - Diagnostic Testing Radiological Interpretation: Interpreted by me - Risk of complications Minimal Risk: Minimal risk of morbidity - Departure Departure Disposition: Home Clinical Impression: Subungual hematoma Condition: Stable Critical Care Time: No Referrals: NIKOLAI [place] [Primary Care Provider] - Follow up/PCP as directed Instructions: Bruising Under the Nail
--- NOTE | 2023-05-06 22:13 | XRAY ---
Indication: Pain following injury. Comparison: None 3 view left hand demonstrates normal bones, articulation, and soft tissues.
[2023-05-06 22:32] VITALS: BP 124/78; PULSE 72; O2SAT 97
== END 2023-05-06 22:43 | disposition home or self-care (01) ==
LOC: ED 21:13
DX: S60.122A Contusion of left index finger with damage to nail, initial encounter (principal); W23.0XXA Caught, crushed, jammed, or pinched between moving objects, initial encounter; E78.5 Hyperlipidemia, unspecified; I10 Essential (primary) hypertension; Q79.62 Hypermobile Ehlers-Danlos syndrome; Z79.891 Long term (current) use of opiate analgesic; Z79.899 Other long term (current) drug therapy; Z72.0 Tobacco use
CPT/HCPCS: 11740; 73130; 99282

== ENCOUNTER 2023-07-05 22:50 | Emergency (ER) | payer MEDICAID, OTHER ==
[2023-07-05 22:56] VITALS: TEMP 97.2
[2023-07-05 23:24] LABS: Absolute Neutrophil Ct (ANC) 2.34 x10^3/uL (1.4-6.9); BASOPHIL % 0.8 % (0.0-0.4); Basophil (Absolute #) 0.04 x10^3/uL (0-0.4); Eosinophil % 2.3 % (0.00-5.0); Eosinophil (Absolute #) 0.12 x10^3/uL (0-0.5); Hematocrit 42.6 % (42-50); IMMATURE GRAN # 0.01 x10^3u/L (0.00-0.03); IMMATURE GRAN % 0.2 % (0.00-0.4); Lymphocyte (Absolute #) 2.14 x10^3/uL (1.0-4.6); Lymphocytes % 40.2 % (24.0-44.0); Mean Cell Volume 95.1 fL (78-100); Mean Corpuscular Hemoglobin 31.3 pg (26-32); Mean Corpuscular Hgb Concent. 32.9 g/dL (32-36); Mean Platelet Volume 9.5 fL (7.5-11.0); Monocyte (Absolute #) 0.68 x10^3/uL (0.0-1.3); Monocytes % 12.8 % (0.0-12.0); Neutrophil % 43.7 % (36.0-66.0); Platelet Count 226 x10^3/uL (150-450); Red Blood Count 4.48 x10^6/uL (4.1-5.6); Red Cell Distribution Width 11.6 % (11.5-14.0); White Blood Count 5.3 x10^3/uL (4.0-10.5)
[2023-07-05 23:41] LABS: ALBUMIN 3.9 g/dL (3.5-5.0); ANION GAP 12.6 MEQ/L (5-15); BILIRUBIN,TOTAL 0.2 mg/dL (0.2-1.3); Calcium 8.6 mg/dL (8.4-10.2); Creatinine 1 0.87 mg/dL (0.66-1.25); EST GLOMERULAR FILTRATION RATE 111.9 ML/MIN; Potassium 3.4 mmol/L (3.5-5.1); Total Protein 6.8 g/dL (6.3-8.2)
[2023-07-05 23:52] VITALS: O2SAT 98
--- NOTE | 2023-07-06 00:06 | ERPHSYRPT ---
- History of Present Illness Time Seen by Provider: 07/05/23 23:00 Historian: patient Exam Limitations: no limitations Patient Subjective Stated Complaint: under arm pain, ear pain Triage Nursing Assessment: Pt ambultated into ER without diff, c/o bilat armpit pain which occured around 8pm tonight. Pt denies any chest pain or sob, pt has a non prod cough and was positive for covid 3 weeks ago. Lungs clear, heart tones reg. No bruising or edema noted to either armpit area. Physician History: Patient is a 38-year-old male presents to our ED for evaluation of bilateral armpit pain radiating to his right ear. Symptoms started today at approximately 8 PM. Patient was resting when symptoms occurred. No trauma no fever. Pain is associated with a slight cough. Patient advises that he was COVID-positive approximately 3 weeks ago. No associated nausea vomiting or diaphoresis. Symptoms are mild to moderate in intensity. No specific worsening or improving factors. Patient voices no other complaints or concerns at this time. Portions of this note were created with voice recognition technology. There may be grammatical, spelling, punctuation or sound alike errors Timing/Duration: today Activities at Onset: none Quality: aching Location: other (Bilateral armpit pain) Chest Pain Radiation: neck Severity of Pain-Max: moderate Severity of Pain-Current: mild Modifying Factors: Improves With: nothing Associated Symptoms: denies symptoms Prior Chest Pain/Cardiac Workup: no prior chest pain Nitro Today/Relief: no nitro taken today Aspirin Treatment Today: no aspirin today Allergies/Adverse Reactions: hydromorphone [From Dilaudid] Adverse Reaction (Verified 07/05/23 23:06) Home Medications: Acyclovir 800 mg PO BID 01/20/16 [History] levETIRAcetam [Levetiracetam] 1,000 mg PO BID 10/13/17 [History] Loratadine [Claritin] 10 mg PO DAILY 05/31/19 [History] Losartan Potassium 25 mg PO DAILY 05/31/19 [History] Metoprolol Tartrate 25 mg PO DAILY 05/31/19 [History] Omeprazole 20 mg PO BID 05/31/19 [History] buPROPion HCL [Bupropion HCl ER] 150 mg PO BID 05/31/19 [History] Atorvastatin Calcium 40 mg PO DAILY 03/12/21 [History] Calcium Carbonate/Vitamin D3 [Calcium 500 mg-Vit D3 600 Unit] 1 tab PO BID 11/07/22 [History] Hydrocodone/Acetaminophen [Hydrocodone-Acetamin 5-325 mg] 1 tab PO TID 11/07/22 [History] Ubidecarenone [Co Q-10] 100 mg PO DAILY 11/07/22 [History] Buprenorphine [Butrans] 1 patch TOP WEEKLY 05/06/23 [History] Cetirizine HCl [24Hour Allergy] 10 mg PO DAILY 07/05/23 [History] Hx Tetanus, Diphtheria Vaccination/Date Given: Yes Hx Influenza Vaccination/Date Given: No Hx Pneumococcal Vaccination/Date Given: No Immunizations Up to Date: No Travel Risk - International Travel Have you traveled outside of the country in past 3 weeks: No - Coronavirus Screening Are you exhibiting any of the following symptoms?: Yes Symptoms: Cough: New Onset Close contact with a COVID-19 positive Pt in past 14-21 Days: Yes - Vaccine Status Have you recieved a Covid-19 vaccination: No Prizer Hand: Moderna - Vaccination Dates Date of 2cond Vaccination (if applicable): Never received - Review of Systems Constitutional: No Symptoms, No Fever, No Chills Eyes: No Symptoms Ears, Nose, & Throat: No Symptoms Respiratory: No Symptoms, No Cough, No Dyspnea Cardiac: No Symptoms, No Chest Pain, No Edema, No Syncope Abdominal/Gastrointestinal: No Symptoms, No Abdominal Pain, No Nausea, No Vomiting, No Diarrhea Genitourinary Symptoms: No Symptoms, No Dysuria Musculoskeletal: No Symptoms, No Back Pain, No Neck Pain Skin: No Symptoms, No Rash Neurological: No Symptoms, No Dizziness, No Focal Weakness, No Sensory Changes Psychological: No Symptoms Endocrine: No Symptoms Hematologic/Lymphatic: No Symptoms Immunological/Allergic: No Symptoms All Other Systems: Reviewed and Negative - Past Medical History Pertinent Past Medical History: Yes Neurological History: Peripheral Neuropathy, Seizures ENT History: No Pertinent History Cardiac History: Arrhythmia, High Cholesterol, Hypertension Respiratory History: No Pertinent History Endocrine Medical History: No Pertinent History Musculoskeletal History: Arthritis GI Medical History: Hernia History: No Pertinent History Psycho-Social History: Anxiety, Depression Male Reproductive Disorders: No Pertinent History Other Medical History: 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 REPORTS SLIPPED DISK AT L4,L5, AND S1 (UNDERWENT PT FOR LE STRENGTHENING WITH SUCCESS). SPINA BIFIDA OCULTA - Past Surgical History Past Surgical History: Yes Neuro Surgical History: No Pertinent History Cardiac: No Pertinent History Respiratory: No Pertinent History Gastrointestinal: No Pertinent History Genitourinary: No Pertinent History Musculoskeletal: No Pertinent History, Orthopedic Surgery Male Surgical History: No Pertinent History Other Surgical History: tonsils - Social History Smoking Status: Current every day smoker How long have you smoked: 27 yrs Exposure to second hand smoke: Yes Drug Use: none Patient Lives Alone: No - Nursing Vital Signs Nursing Vital Signs: Initial Vital Signs Temperature 97.2 F 07/05/23 22:51 Pulse Rate 58 L 07/05/23 22:51 Respiratory Rate 20 07/05/23 22:51 Blood Pressure 146/96 07/05/23 22:51 O2 Sat by Pulse Oximetry 96 07/05/23 22:51 Pain Scale Pain Intensity 3 - Physical Exam General Appearance: no apparent distress, alert Eye Exam: PERRL/EOMI, eyes nml inspection Ears, Nose, Throat Exam: normal ENT inspection, TMs normal, pharynx normal, moist mucous membranes Neck Exam: normal inspection, non-tender, supple, full range of motion Respiratory Exam: normal breath sounds, lungs clear, airway intact, No respiratory distress Cardiovascular Exam: regular rate/rhythm, normal heart sounds, normal peripheral pulses Gastrointestinal/Abdomen Exam: soft, No tenderness, No mass Back Exam: normal inspection, No CVA tenderness, No vertebral tenderness Extremity Exam: normal inspection, normal range of motion Neurologic Exam: alert, oriented x 3, cooperative, normal mood/affect, sensation nml, No motor deficits Skin Exam: normal color, warm, dry Lymphatic Exam: No adenopathy SpO2 Interpretation: normal SpO2: 98 O2 Delivery: Room Air - Course Nursing assessment & vital signs reviewed: Yes EKG Interpreted by Me: RATE (53), Sinus Rhythm, NORMAL AXIS, NORMAL INTERVALS - Radiology Exams Chest X-ray Interpretation: Interpreted by me (No acute findings) Ordered Tests: Active Orders 24 hr Category Date Time Status Matchbook Maker STAT Care 07/05/23 23:09 Active IV Insertion STAT Care 07/05/23 23:08 Active Pulse Oximetry (ED) STAT Care 07/05/23 23:08 Active CHEST 1 VIEW (PORTABLE) Stat Exams 07/06/23 00:24 Taken CBC W DIFF Stat Lab 07/05/23 23:20 Completed CMP Stat Lab 07/05/23 23:20 Completed D-DIMER QUANTITATIVE Stat Lab 07/05/23 23:20 Completed NT PRO BNPII Stat Lab 07/05/23 23:20 Completed TROPONIN Q4H Lab 07/05/23 23:20 Completed TROPONIN Q4H Lab 07/06/23 01:33 Received TROPONIN Q4H Lab 07/06/23 07:15 Ordered Lab/Rad Data: Laboratory Result Diagrams 07/05/23 23:20 07/05/23 23:20 Laboratory Results 07/05/23 07/05/23 07/05/23 Range/Units 23:20 23:20 23:20 WBC (4.0-10.5) x10^3/uL RBC (4.1-5.6) x10^6/uL Hgb (12.5-18.0) g/dL Hct (42-50) % MCV (78-100) fL MCH (26-32) pg MCHC (32-36) g/dL RDW (11.5-14.0) % Plt Count (150-450) x10^3/uL MPV (7.5-11.0) fL Gran % (36.0-66.0) % Immature Gran % (Auto) (0.00-0.4) % Nucleat RBC Rel Count (0.00-0.1) % Eos # (Auto) (0-0.5) x10^3/uL Immature Gran # (Auto) (0.00-0.03) x10^3u/L Absolute Lymphs (auto) (1.0-4.6) x10^3/uL Absolute Monos (auto) (0.0-1.3) x10^3/uL Absolute Nucleated RBC (0.00-0.01) x10^3u/L Lymphocytes % (24.0-44.0) % Monocytes % (0.0-12.0) % Eosinophils % (0.00-5.0) % Basophils % (0.0-0.4) % Absolute Granulocytes (1.4-6.9) x10^3/uL Basophils # (0-0.4) x10^3/uL D-Dimer 0.23 (0.0-0.50) mg/L Sodium (137-145) mmol/L Potassium (3.5-5.1) mmol/L Chloride (98-107) mmol/L Carbon Dioxide (22-30) mmol/L Anion Gap (5-15) MEQ/L BUN (9-20) mg/dL Creatinine (0.66-1.25) mg/dL Estimated GFR ML/MIN Glucose (74-106) mg/dL Calcium (8.4-10.2) mg/dL Total Bilirubin (0.2-1.3) mg/dL AST (17-59) U/L ALT (0-50) U/L Alkaline Phosphatase (38-126) U/L Troponin I < 0.012 (0.000-0.034) ng/mL NT-Pro-B Natriuret Pep 28.6 (<300) pg/mL Serum Total Protein (6.3-8.2) g/dL Albumin (3.5-5.0) g/dL 07/05/23 07/05/23 Range/Units 23:20 23:20 WBC 5.3 (4.0-10.5) x10^3/uL RBC 4.48 (4.1-5.6) x10^6/uL Hgb 14.0 (12.5-18.0) g/dL Hct 42.6 (42-50) % MCV 95.1 (78-100) fL MCH 31.3 (26-32) pg MCHC 32.9 (32-36) g/dL RDW 11.6 (11.5-14.0) % Plt Count 226 (150-450) x10^3/uL MPV 9.5 (7.5-11.0) fL Gran % 43.7 (36.0-66.0) % Immature Gran % (Auto) 0.2 (0.00-0.4) % Nucleat RBC Rel Count 0.0 (0.00-0.1) % Eos # (Auto) 0.12 (0-0.5) x10^3/uL Immature Gran # (Auto) 0.01 (0.00-0.03) x10^3u/L Absolute Lymphs (auto) 2.14 (1.0-4.6) x10^3/uL Absolute Monos (auto) 0.68 (0.0-1.3) x10^3/uL Absolute Nucleated RBC 0.00 (0.00-0.01) x10^3u/L Lymphocytes % 40.2 (24.0-44.0) % Monocytes % 12.8 H (0.0-12.0) % Eosinophils % 2.3 (0.00-5.0) % Basophils % 0.8 (0.0-0.4) % Absolute Granulocytes 2.34 (1.4-6.9) x10^3/uL Basophils # 0.04 (0-0.4) x10^3/uL D-Dimer (0.0-0.50) mg/L Sodium 138 (137-145) mmol/L Potassium 3.4 L (3.5-5.1) mmol/L Chloride 106 (98-107) mmol/L Carbon Dioxide 23 (22-30) mmol/L Anion Gap 12.6 (5-15) MEQ/L BUN 14 (9-20) mg/dL Creatinine 0.87 (0.66-1.25) mg/dL Estimated GFR 111.9 ML/MIN Glucose 140 H (74-106) mg/dL Calcium 8.6 (8.4-10.2) mg/dL Total Bilirubin 0.20 (0.2-1.3) mg/dL AST 27 (17-59) U/L ALT 39 (0-50) U/L Alkaline Phosphatase 64 (38-126) U/L Troponin I (0.000-0.034) ng/mL NT-Pro-B Natriuret Pep (<300) pg/mL Serum Total Protein 6.8 (6.3-8.2) g/dL Albumin 3.9 (3.5-5.0) g/dL - Progress Progress: improved Air Movement: good Progress Note: Patient is a 38-year-old male presents to our ED with complaints of pain to bilateral armpits. Pain radiates to the right ear. No trauma no fever. Pain started approximately 8 PM. Physical exam is unremarkable. Workup essentially nonremarkable. Troponin negative x 2. D-dimer negative. Chest x-ray negative. Laboratory workup including CBC CMP essentially nonremarkable. Patient heart score is a 3. No indication for further workup will discharge home. Patient has no active pain at this time. He will follow-up with his primary care doctor within 48 hours for evaluation. Significant other at bedside. They voices no other complaints or concerns at this time. Portions of this note were created with voice recognition technology. There may be grammatical, spelling, punctuation or sound alike errors Complexity problem addressed is moderate acute complicated No critical care time Complexity of data reviewed is moderate in intensity. Test ordered test reviewed. Results analyzed and correlated clinically with history and physical exam. Risk complication and or risk of morbidity/mortality of patient management is low. Vital stable. Time spent to discharge patient approximately 15 minutes. Plan of care established for shared decision making. No social determinants of health present impede follow-up. Patient agrees to follow-up with his primary care doctor within 48 hours for evaluation. Portions of this note were created with voice recognition technology. There may be grammatical, spelling, punctuation or sound alike errors 07/06/23 01:55 Blood Culture(s) Obtained: No Antibiotics given: No Counseled pt/family regarding: lab results, diagnosis, need for follow-up, rad r esults - Departure Departure Disposition: Home Clinical Impression: Armpit pain Condition: Stable Critical Care Time: No Referrals: NIKOLAI [place] [Primary Care Provider] - Follow up/PCP as directed Additional Instructions: Discharge/Care Plan RODERICKSAMYJERICHO BEATRIZ was seen on 07/06/23 in the Emergency Room. The patient was counseled regarding Diagnosis,Lab results, Imaging studies, need for follow up a nd when to return to the Emergency Room. Prescriptions given: Discharge Note I have spoken with the patient and/or caregivers. I have explained the patient's condition, diagnosis and treatment plan based on the information available to me at this time. I have answered the patient's and/or caregiver's questions and addressed any concerns. The patient and/or caregivers have as good understanding of the patient's diagnosis, condition and treatment plan as can be expected at this point. The vital signs have been stable. The patient's condition is stable and appropriate for discharge from the emergency department. The patient will pursue further outpatient evaluation with the primary care physician or other designated or consulting physician as outlined in the discharge instructions. The patient and/or caregivers are agreeable to this plan of care and follow-up instructions have been explained in detail. The patient and/or caregivers have received these instruction. The patient/and or caregivers are aware that any significant change in condition or worsening of symptoms should prompt an immediate return to this or the closest emergency department or call 911.
[2023-07-06 02:12] VITALS: BP 152/83; PULSE 50; RESP 14
--- NOTE | 2023-07-06 08:55 | XRAY ---
Indication: Chest pain. Comparison: October 24, 2020 Portable chest again demonstrates normal heart, lungs, and bony thorax with incidental mediastinal/hilar/pulmonary calcified granulomas.
== END 2023-07-06 02:33 | disposition home or self-care (01) ==
LOC: ED 22:50
DX: M79.622 Pain in left upper arm (principal); M79.621 Pain in right upper arm; H92.01 Otalgia, right ear; E78.5 Hyperlipidemia, unspecified; I10 Essential (primary) hypertension; Z79.891 Long term (current) use of opiate analgesic; Z79.899 Other long term (current) drug therapy; Z72.0 Tobacco use
CPT/HCPCS: 36415; 71045; 80053; 83880; 84484; 85025; 85379; 93041; 94760; 99283

== ENCOUNTER 2023-09-29 15:14 | Emergency (ER) | payer MEDICAID ==
--- NOTE | 2023-09-29 15:16 | ERPHSYRPT ---
- History of Present Illness Time Seen by Provider: 09/29/23 15:16 Historian: patient, EMS, old records Exam Limitations: no limitations Physician History: This is a 38-year-old white male patient of Dr. Meyers who was brought to the emergency department by the paramedics secondary to "passing out" and vomiting. Patient states that he took his medications earlier this afternoon as he is supposed to. He is following his daily regimen. He suddenly felt as though he was going to pass out and laid down and immediately rolled over because he felt sick to his stomach and vomited. He denies chest pain. He denies headache. He has not had a fever. He has no abdominal pain. Patient woke up and stated on arrival to the emergency department "I feel stoned". He denied taking any of his medications excessively. He also denies using illicit drugs. Patient does have a buprenorphine weekly patch in place. He has a seizure disorder and takes Keppra for this. 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 Timing/Duration: today Activities at Onset: sleep Severity of Pain-Max: none Severity of Pain-Current: none Modifying Factors: Improves With: lying down, vomiting Associated Symptoms: nausea, vomiting, weakness Allergies/Adverse Reactions: hydromorphone [From Dilaudid] Adverse Reaction (Verified 09/29/23 15:31) Home Medications: Acyclovir 800 mg PO BID 01/20/16 [History] levETIRAcetam [Levetiracetam] 1,000 mg PO BID 10/13/17 [History] Loratadine [Claritin] 10 mg PO DAILY 05/31/19 [History] Losartan Potassium 25 mg PO DAILY 05/31/19 [History] Metoprolol Tartrate 25 mg PO DAILY 05/31/19 [History] Omeprazole 40 mg PO QAM 05/31/19 [History] buPROPion HCL [Bupropion HCl ER] 150 mg PO BID 05/31/19 [History] Atorvastatin Calcium 40 mg PO DAILY 03/12/21 [History] Calcium Carbonate/Vitamin D3 [Calcium 500 mg-Vit D3 600 Unit] 1 tab PO BID 11/07/22 [History] Hydrocodone/Acetaminophen [Hydrocodone-Acetamin 5-325 mg] 1 tab PO TID 11/07/22 [History] Ubidecarenone [Co Q-10] 100 mg PO DAILY 11/07/22 [History] Buprenorphine [Butrans] 1 patch TOP WEEKLY 05/06/23 [History] Cetirizine HCl [24Hour Allergy] 10 mg PO DAILY 07/05/23 [History] Gabapentin [Neurontin ] 400 mg PO DAILY 09/29/23 [History] Hx Tetanus, Diphtheria Vaccination/Date Given: Yes Hx Influenza Vaccination/Date Given: No Hx Pneumococcal Vaccination/Date Given: No Travel Risk - International Travel Have you traveled outside of the country in past 3 weeks: No - Emerging Infectious Disease Are you exhibiting symptoms associated with any current EIDs: No - Review of Systems Constitutional: No Symptoms Eyes: No Symptoms Ears, Nose, & Throat: No Symptoms Respiratory: No Symptoms Cardiac: No Symptoms Abdominal/Gastrointestinal: Nausea, Vomiting Genitourinary Symptoms: No Symptoms Musculoskeletal: No Symptoms Skin: No Symptoms Neurological: Dizziness, Other ([place] as though he was going to pass out) Psychological: No Symptoms Endocrine: No Symptoms Hematologic/Lymphatic: No Symptoms Immunological/Allergic: No Symptoms All Other Systems: Reviewed and Negative - Past Medical History Pertinent Past Medical History: Yes Neurological History: Peripheral Neuropathy, Seizures ENT History: No Pertinent History Cardiac History: Arrhythmia, High Cholesterol, Hypertension Respiratory History: No Pertinent History Endocrine Medical History: No Pertinent History Musculoskeletal History: Arthritis GI Medical History: Hernia History: No Pertinent History Psycho-Social History: Anxiety, Depression Male Reproductive Disorders: No Pertinent History Other Medical History: 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 REPORTS SLIPPED DISK AT L4,L5, AND S1 (UNDERWENT PT FOR LE STRENGTHENING WITH SUCCESS). SPINA BIFIDA OCULTA - Past Surgical History Past Surgical History: Yes Neuro Surgical History: No Pertinent History Cardiac: No Pertinent History Respiratory: No Pertinent History Gastrointestinal: No Pertinent History Genitourinary: No Pertinent History Musculoskeletal: No Pertinent History, Orthopedic Surgery Male Surgical History: No Pertinent History Other Surgical History: tonsils - Social History Smoking Status: Current every day smoker How long have you smoked: 27 yrs Exposure to second hand smoke: Yes Drug Use: none Patient Lives Alone: No - Nursing Vital Signs Nursing Vital Signs: Initial Vital Signs Temperature 98.2 F 09/29/23 15:16 Pulse Rate 57 L 09/29/23 15:16 Blood Pressure 141/81 09/29/23 15:16 O2 Sat by Pulse Oximetry 94 L 09/29/23 15:16 Pain Scale Pain Intensity 0 - Physical Exam General Appearance: no apparent distress, alert, anxiety, thin Eye Exam: PERRL/EOMI, eyes nml inspection Ears, Nose, Throat Exam: normal ENT inspection, moist mucous membranes Neck Exam: normal inspection, non-tender, supple, full range of motion Respiratory Exam: normal breath sounds, lungs clear, airway intact, No chest tenderness, No respiratory distress Cardiovascular Exam: regular rate/rhythm, normal heart sounds, normal peripheral pulses Gastrointestinal/Abdomen Exam: soft, normal bowel sounds, No tenderness, No guarding Rectal Exam: not done Back Exam: normal inspection, normal range of motion, No CVA tenderness, No vertebral tenderness Extremity Exam: normal inspection, normal range of motion, pelvis stable Neurologic Exam: alert, oriented x 3, cooperative, 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, normal mood/affect, nml cerebellar function, nml station & gait, sensation nml Skin Exam: normal color, warm, dry Lymphatic Exam: No adenopathy SpO2 Interpretation: normal O2 Delivery: Room Air - Course Nursing assessment & vital signs reviewed: Yes EKG Interpreted by Me: RATE (64), Sinus Rhythm, NORMAL AXIS, NORMAL INTERVALS, NORMAL QRS, NORMAL ST-T, Other (There are no acute ischemic changes on today's twelve-lead EKG.) Ordered Tests: Active Orders 24 hr Category Date Time Status EKG-ER Only STAT Care 09/29/23 15:38 Active IV Insertion STAT Care 09/29/23 15:38 Active HEAD WITHOUT CONTRAST [CT] Stat Exams 09/29/23 15:41 Completed AMYLASE Stat Lab 09/29/23 16:10 Completed CBC W DIFF Stat Lab 09/29/23 16:10 Completed CMP Stat Lab 09/29/23 16:10 Completed D-DIMER QUANTITATIVE Stat Lab 09/29/23 16:10 Completed LIPASE Stat Lab 09/29/23 16:10 Completed MAG [MAGNESIUM] Stat Lab 09/29/23 16:10 Completed TROPONIN Q4H Lab 09/29/23 16:10 Completed TROPONIN Q4H Lab 09/29/23 19:45 Ordered TROPONIN Q4H Lab 09/29/23 23:45 Ordered UA W/RFX UR CULTURE Stat Lab 09/29/23 16:19 Completed Urine Triage Profile Stat Lab 09/29/23 16:19 Completed Medication Summary Discontinued Medications Generic Name Dose Route Start Last Admin Trade Name Randi PRN Reason Stop Dose Admin Sodium Chloride 1,000 mls @ 999 mls/hr 09/29/23 15:38 09/29/23 16:49 Sodium Chloride 0.9% 1000 Ml IV 09/29/23 16:38 Infused .Q1H1M STA Infusion Sodium Chloride Confirm 09/29/23 15:48 Sodium Chloride 0.9% 1000 Ml Administered 09/29/23 15:49 Dose 1,000 mls @ ud .ROUTE .STK-MED ONE Lab/Rad Data: Laboratory Result Diagrams 09/29/23 16:10 09/29/23 16:10 Laboratory Results 09/29/23 09/29/23 09/29/23 Range/Units 16:19 16:19 16:10 WBC (4.0-10.5) x10^3/uL RBC (4.1-5.6) x10^6/uL Hgb (12.5-18.0) g/dL Hct (42-50) % MCV (78-100) fL MCH (26-32) pg MCHC (32-36) g/dL RDW (11.5-14.0) % Plt Count (150-450) x10^3/uL MPV (7.5-11.0) fL Gran % (36.0-66.0) % Immature Gran % (Auto) (0.00-0.4) % Nucleat RBC Rel Count (0.00-0.1) % Eos # (Auto) (0-0.5) x10^3/uL Immature Gran # (Auto) (0.00-0.03) x10^3u/L Absolute Lymphs (auto) (1.0-4.6) x10^3/uL Absolute Monos (auto) (0.0-1.3) x10^3/uL Absolute Nucleated RBC (0.00-0.01) x10^3u/L Lymphocytes % (24.0-44.0) % Monocytes % (0.0-12.0) % Eosinophils % (0.00-5.0) % Basophils % (0.0-0.4) % Absolute Granulocytes (1.4-6.9) x10^3/uL Basophils # (0-0.4) x10^3/uL D-Dimer 0.23 (0.0-0.50) mg/L Sodium (135-145) mmol/L Potassium (3.5-5.1) mmol/L Chloride (98-107) mmol/L Carbon Dioxide (22-30) mmol/L Anion Gap (5-15) MEQ/L BUN (9-20) mg/dL Creatinine (0.66-1.25) mg/dL Estimated GFR ML/MIN Glucose (74-106) mg/dL Calcium (8.4-10.2) mg/dL Magnesium (1.6-2.3) mg/dL Total Bilirubin (0.2-1.3) mg/dL AST (17-59) U/L ALT (0-50) U/L Alkaline Phosphatase (38-126) U/L Troponin I (0.000-0.034) ng/mL Serum Total Protein (6.3-8.2) g/dL Albumin (3.5-5.0) g/dL Amylase (30-110) U/L Lipase (23-300) U/L Urine Color Yellow (Yellow) Urine Appearance Clear (Clear) Urine pH 8.0 (4.6-8.0) Ur Specific [place] 1.010 (1.005-1.030) Urine Protein Negative (Negative) Urine Glucose (UA) Negative (Negative) mg/dL Urine Ketones Negative (Negative) Urine Blood Negative (Negative) Urine Nitrite Negative (Negative) Urine Bilirubin Negative (Negative) Urine Urobilinogen 1.0 A (0.2) mg/dL Ur Leukocyte Esterase Negative (Negative) Urine Microscopic RBC 0-2 (0-5) /HPF Urine Microscopic WBC 0-2 (0-5) /HPF Ur Epithelial Cells None Seen (None Seen) /HPF Urine Bacteria None Seen (None Seen) /HPF Urine Culture Reflexed NO (NO) Urine Opiates Level POSITIVE A (NEGATIVE) Ur Methadone NEGATIVE (NEGATIVE) Urine Barbiturates NEGATIVE (NEGATIVE) Ur Phencyclidine (PCP) NEGATIVE (NEGATIVE) Urine Amphetamine NEGATIVE (NEGATIVE) U Benzodiazepine Level NEGATIVE (NEGATIVE) Urine Cocaine NEGATIVE (NEGATIVE) Urine Marijuana (THC) NEGATIVE (NEGATIVE) 03/28/24 03/28/24 03/28/24 Range/Units 16:10 16:10 16:10 WBC (4.0-10.5) x10^3/uL RBC (4.1-5.6) x10^6/uL Hgb (12.5-18.0) g/dL Hct (42-50) % MCV (78-100) fL MCH (26-32) pg MCHC (32-36) g/dL RDW (11.5-14.0) % Plt Count (150-450) x10^3/uL MPV (7.5-11.0) fL Gran % (36.0-66.0) % Immature Gran % (Auto) (0.00-0.4) % Nucleat RBC Rel Count (0.00-0.1) % Eos # (Auto) (0-0.5) x10^3/uL Immature Gran # (Auto) (0.00-0.03) x10^3u/L Absolute Lymphs (auto) (1.0-4.6) x10^3/uL Absolute Monos (auto) (0.0-1.3) x10^3/uL Absolute Nucleated RBC (0.00-0.01) x10^3u/L Lymphocytes % (24.0-44.0) % Monocytes % (0.0-12.0) % Eosinophils % (0.00-5.0) % Basophils % (0.0-0.4) % Absolute Granulocytes (1.4-6.9) x10^3/uL Basophils # (0-0.4) x10^3/uL D-Dimer (0.0-0.50) mg/L Sodium 140 (135-145) mmol/L Potassium 3.8 (3.5-5.1) mmol/L Chloride 108 H (98-107) mmol/L Carbon Dioxide 26 (22-30) mmol/L Anion Gap 10.4 (5-15) MEQ/L BUN 10 (9-20) mg/dL Creatinine 1.02 (0.66-1.25) mg/dL Estimated GFR 95.3 ML/MIN Glucose 103 (74-106) mg/dL Calcium 8.8 (8.4-10.2) mg/dL Magnesium 2.0 (1.6-2.3) mg/dL Total Bilirubin 0.40 (0.2-1.3) mg/dL AST 36 (17-59) U/L ALT 34 (0-50) U/L Alkaline Phosphatase 68 (38-126) U/L Troponin I < 0.012 (0.000-0.034) ng/mL Serum Total Protein 6.6 (6.3-8.2) g/dL Albumin 3.9 (3.5-5.0) g/dL Amylase 83 (30-110) U/L Lipase 51 (23-300) U/L Urine Color (Yellow) Urine Appearance (Clear) Urine pH (4.6-8.0) Ur Specific [place] (1.005-1.030) Urine Protein (Negative) Urine Glucose (UA) (Negative) mg/dL Urine Ketones (Negative) Urine Blood (Negative) Urine Nitrite (Negative) Urine Bilirubin (Negative) Urine Urobilinogen (0.2) mg/dL Ur Leukocyte Esterase (Negative) Urine Microscopic RBC (0-5) /HPF Urine Microscopic WBC (0-5) /HPF Ur Epithelial Cells (None Seen) /HPF Urine Bacteria (None Seen) /HPF Urine Culture Reflexed (NO) Urine Opiates Level (NEGATIVE) Ur Methadone (NEGATIVE) Urine Barbiturates (NEGATIVE) Ur Phencyclidine (PCP) (NEGATIVE) Urine Amphetamine (NEGATIVE) U Benzodiazepine Level (NEGATIVE) Urine Cocaine (NEGATIVE) Urine Marijuana (THC) (NEGATIVE) 09/29/23 Range/Units 16:10 WBC 11.2 H (4.0-10.5) x10^3/uL RBC 4.37 (4.1-5.6) x10^6/uL Hgb 14.2 (12.5-18.0) g/dL Hct 41.6 L (42-50) % MCV 95.2 (78-100) fL MCH 32.5 H (26-32) pg MCHC 34.1 (32-36) g/dL RDW 11.7 (11.5-14.0) % Plt Count 237 (150-450) x10^3/uL MPV 9.3 (7.5-11.0) fL Gran % 73.0 H (36.0-66.0) % Immature Gran % (Auto) 0.3 (0.00-0.4) % Nucleat RBC Rel Count 0.0 (0.00-0.1) % Eos # (Auto) 0.06 (0-0.5) x10^3/uL Immature Gran # (Auto) 0.03 (0.00-0.03) x10^3u/L Absolute Lymphs (auto) 2.18 (1.0-4.6) x10^3/uL Absolute Monos (auto) 0.70 (0.0-1.3) x10^3/uL Absolute Nucleated RBC 0.00 (0.00-0.01) x10^3u/L Lymphocytes % 19.5 L (24.0-44.0) % Monocytes % 6.3 (0.0-12.0) % Eosinophils % 0.5 (0.00-5.0) % Basophils % 0.4 (0.0-0.4) % Absolute Granulocytes 8.16 H (1.4-6.9) x10^3/uL Basophils # 0.04 (0-0.4) x10^3/uL D-Dimer (0.0-0.50) mg/L Sodium (135-145) mmol/L Potassium (3.5-5.1) mmol/L Chloride (98-107) mmol/L Carbon Dioxide (22-30) mmol/L Anion Gap (5-15) MEQ/L BUN (9-20) mg/dL Creatinine (0.66-1.25) mg/dL Estimated GFR ML/MIN Glucose (74-106) mg/dL Calcium (8.4-10.2) mg/dL Magnesium (1.6-2.3) mg/dL Total Bilirubin (0.2-1.3) mg/dL AST (17-59) U/L ALT (0-50) U/L Alkaline Phosphatase (38-126) U/L Troponin I (0.000-0.034) ng/mL Serum Total Protein (6.3-8.2) g/dL Albumin (3.5-5.0) g/dL Amylase (30-110) U/L Lipase (23-300) U/L Urine Color (Yellow) Urine Appearance (Clear) Urine pH (4.6-8.0) Ur Specific [place] (1.005-1.030) Urine Protein (Negative) Urine Glucose (UA) (Negative) mg/dL Urine Ketones (Negative) Urine Blood (Negative) Urine Nitrite (Negative) Urine Bilirubin (Negative) Urine Urobilinogen (0.2) mg/dL Ur Leukocyte Esterase (Negative) Urine Microscopic RBC (0-5) /HPF Urine Microscopic WBC (0-5) /HPF Ur Epithelial Cells (None Seen) /HPF Urine Bacteria (None Seen) /HPF Urine Culture Reflexed (NO) Urine Opiates Level (NEGATIVE) Ur Methadone (NEGATIVE) Urine Barbiturates (NEGATIVE) Ur Phencyclidine (PCP) (NEGATIVE) Urine Amphetamine (NEGATIVE) U Benzodiazepine Level (NEGATIVE) Urine Cocaine (NEGATIVE) Urine Marijuana (THC) (NEGATIVE) - Progress Progress: improved, re-examined Progress Note: 09/29/23 16:20 This patient's medical issue is 1 of moderate complexity. The level of complexity and the workup performed is based on review of the patient's past medical history, review of the patient's medication list, review of patient drug allergy list, history present illness and physical findings on examination. The workup in this patient includes placement of intravenous line, twelve-lead EKG, troponin level, CBC, CMP, CT scan of the head, urinalysis, urine drug screen. Infusion of normal saline solution. At the request of the patient's spouse, I ordered a D-dimer level. The patient currently has no complaints of lower extremity pain. However, the patient's spouse reports that he has had intermittent severe right lower quadrant abdominal pain. I had plan to order a Keppra level. However this is a send out. I did not order this as the results will not be back for a week and this will not help me manage this patient today. 09/29/23 16:49 CT scan of the head without contrast shows new left sphenoid sinus disease. The remaining CT scan of the head without contrast examination continues to be normal. 09/29/23 17:12 I interpreted the patient's laboratory data results. The patient has a mild leukocytosis. This fits with his CT scan findings of sinusitis. The remainder of his labs show no acute findings. 09/29/23 17:13 Patient is feeling better. He has no chest pain. He has no shortness of breath. He has no abdominal pain. We are discharging this patient to home. Counseled pt/family regarding: lab results, diagnosis, need for follow-up, rad results - Departure Departure Disposition: Home Clinical Impression: Sinusitis, Vomiting Condition: Stable Critical Care Time: No Referrals: NIKOLAI MEYERS [Primary Care Provider] - Follow up/PCP as directed Prescriptions: Ondansetron ODT 4 MG [Zofran Odt 4 mg] 4 mg PO Q6H PRN PRN #10 tablet PRN Reason: Vomiting Amoxicillin/Potassium Clav [Augmentin 500-125 Tablet] 1 each PO TID 7 Days #21 tablet
[2023-09-29 15:31] VITALS: TEMP 98.2
[2023-09-29] MEDS ORDERED: Sodium Chloride 0.9% 1000 ML 1,000 ML ONE (15:48)
[2023-09-29] MEDS: Sodium Chloride 0.9% 1000 ML 1,000 ML IV STA (15:48)
[2023-09-29 16:13] LABS: Absolute Neutrophil Ct (ANC) 8.16 x10^3/uL (1.4-6.9); BASOPHIL % 0.4 % (0.0-0.4); Basophil (Absolute #) 0.04 x10^3/uL (0-0.4); Eosinophil % 0.5 % (0.00-5.0); Eosinophil (Absolute #) 0.06 x10^3/uL (0-0.5); Hematocrit 41.6 % (42-50); Hemoglobin 14.2 g/dL (12.5-18.0); IMMATURE GRAN # 0.03 x10^3u/L (0.00-0.03); IMMATURE GRAN % 0.3 % (0.00-0.4); Lymphocyte (Absolute #) 2.18 x10^3/uL (1.0-4.6); Lymphocytes % 19.5 % (24.0-44.0); Mean Cell Volume 95.2 fL (78-100); Mean Corpuscular Hemoglobin 32.5 pg (26-32); Mean Corpuscular Hgb Concent. 34.1 g/dL (32-36); Mean Platelet Volume 9.3 fL (7.5-11.0); Monocytes % 6.3 % (0.0-12.0); Platelet Count 237 x10^3/uL (150-450); Red Blood Count 4.37 x10^6/uL (4.1-5.6); Red Cell Distribution Width 11.7 % (11.5-14.0); White Blood Count 11.2 x10^3/uL (4.0-10.5)
--- NOTE | 2023-09-29 16:24 | XRAY ---
Indication: Dizziness. Syncope. Multiple contiguous axial images obtained through the head without contrast. Comparison: March 12, 2021 Normal appearing brain parenchyma, ventricles, and bony calvarium. New near-complete opacification left sphenoid sinus. Remaining visualized paranasal sinuses and mastoid air cells are clear. Impression: New left sphenoid sinus disease. Remaining CT head without contrast exam continues to be normal.
[2023-09-29 16:29] LABS: ALBUMIN 3.9 g/dL (3.5-5.0); ANION GAP 10.4 MEQ/L (5-15); BILIRUBIN,TOTAL 0.4 mg/dL (0.2-1.3); Calcium 8.8 mg/dL (8.4-10.2); Creatinine 1 1.02 mg/dL (0.66-1.25); EST GLOMERULAR FILTRATION RATE 95.3 ML/MIN; Potassium 3.8 mmol/L (3.5-5.1); Total Protein 6.6 g/dL (6.3-8.2)
[2023-09-29 16:36] LABS: Appearance Clear (Clear); Bilirubin Negative (Negative); Blood Negative (Negative); Glucose, Urine Negative (Negative); Ketones Negative (Negative); Leukocyte Esterase Negative (Negative); Nitrite Negative (Negative); Protein,Urine Dip Negative (Negative)
[2023-09-29 16:39] LABS: WBC 0-2 /HPF (0-5)
[2023-09-29 16:40] LABS: ADD URINE CULTURE? NO (NO); Bacteria None Seen /HPF (None Seen); Epithelial Cells None Seen /HPF (None Seen); RBC 0-2 /HPF (0-5)
[2023-09-29 16:58] LABS: Amphetamine,Urine NEGATIVE (NEGATIVE); Barbiturate,Urine NEGATIVE (NEGATIVE); Benzodiazepine,Urine NEGATIVE (NEGATIVE); Cocaine,Urine NEGATIVE (NEGATIVE); Methadone,Urine NEGATIVE (NEGATIVE); Opiate,Urine POSITIVE (NEGATIVE); PCP,Urine NEGATIVE (NEGATIVE); THC,Urine NEGATIVE (NEGATIVE)
[2023-09-29 17:27] VITALS: BP 118/71; PULSE 68; RESP 16; O2SAT 96
== END 2023-09-29 17:30 | disposition home or self-care (01) ==
LOC: ED 15:14
DX: J32.3 Chronic sphenoidal sinusitis (principal); R11.2 Nausea with vomiting, unspecified; R55 Syncope and collapse; E78.5 Hyperlipidemia, unspecified; I10 Essential (primary) hypertension; Z79.891 Long term (current) use of opiate analgesic; Z79.899 Other long term (current) drug therapy; Z72.0 Tobacco use
CPT/HCPCS: 36000; 36415; 70450; 80053; 80307; 81001; 82150; 83690; 83735; 84484; 85025; 85379; 93005; 99284

== ENCOUNTER 2023-11-20 20:08 | Emergency (ER) | payer OTHER ==
[2023-11-20] MEDS ORDERED: TETRACAINE 0.5% STERI-UNIT SOL OP ONE (20:41)
[2023-11-20] MEDS ORDERED: Fluor-I-Strip/Ful-Flo OP ONE (20:41)
[2023-11-20 20:48] VITALS: RESP 18; TEMP 98.1
[2023-11-20 21:24] VITALS: O2SAT 95
--- NOTE | 2023-11-20 21:25 | ERPHSYRPT ---
- History of Present Illness Time Seen by Provider: 11/20/23 21:04 Source: patient Exam Limitations: no limitations Patient Subjective Stated Complaint: pt reports that at approx 1930 his toddler accidentally scraped his eye with a fingernail and pt immediately started exp eriencing severe 8/10 burning, aching pain and blurry vision/ excessive tearing. Triage Nursing Assessment: pt ambulated into room 8 independently with slow steady gait after standing on scale for weight acquisition. pt is alert and oriented times three, able to move all extremities, able to speak in complete sentences, and with resp even and unlabored on RA without use of accessory muscles. see visual acuity documentation below. pt keeping left eye closed tightly due to pain. excessive clear tearing noted, sclera and conjunctiva noted to be very moist and pink in color. pt unable to tolerate eye being open long enough for further assessment. states that he cannot see anything out of the left eye due to blurry vision and like "looking through water". pt denies other injury, pain, or complaint. Physician History: About 90 minutes ago pt's 1 year old scratched pt's left eye with a fingernail with resultant left eye pain. Allergies/Adverse Reactions: hydromorphone [From Dilaudid] Adverse Reaction (Verified 11/20/23 20:27) Home Medications: Acyclovir 800 mg PO BID 01/20/16 [History] levETIRAcetam [Levetiracetam] 1,000 mg PO BID 10/13/17 [History] Loratadine [Claritin] 10 mg PO DAILY 05/31/19 [History] Losartan Potassium 25 mg PO DAILY 05/31/19 [History] Metoprolol Tartrate 25 mg PO DAILY 05/31/19 [History] Omeprazole 40 mg PO QAM 05/31/19 [History] buPROPion HCL [Bupropion HCl ER] 150 mg PO BID 05/31/19 [History] Atorvastatin Calcium 40 mg PO DAILY 03/12/21 [History] Calcium Carbonate/Vitamin D3 [Calcium 500 mg-Vit D3 600 Unit] 1 tab PO BID 11/07/22 [History] Hydrocodone/Acetaminophen [Hydrocodone-Acetamin 5-325 mg] 1 tab PO TID 11/07/22 [History] Ubidecarenone [Co Q-10] 100 mg PO DAILY 11/07/22 [History] Buprenorphine [Butrans] 1 patch TOP WEEKLY 05/06/23 [History] Cetirizine HCl [24Hour Allergy] 10 mg PO DAILY 07/05/23 [History] Gabapentin [Neurontin ] 400 mg PO DAILY 09/29/23 [History] Hx Tetanus, Diphtheria Vaccination/Date Given: Yes Hx Influenza Vaccination/Date Given: No Hx Pneumococcal Vaccination/Date Given: No Immunizations Up to Date: Yes Travel Risk - International Travel Have you traveled outside of the country in past 3 weeks: No - Emerging Infectious Disease Are you exhibiting symptoms associated with any current EIDs: No - Review of Systems Eyes: Eye Pain (left) Respiratory: No Dyspnea Cardiac: No Chest Pain Abdominal/Gastrointestinal: No Abdominal Pain - Past Medical History Pertinent Past Medical History: Yes Neurological History: Peripheral Neuropathy, Seizures ENT History: No Pertinent History Cardiac History: Arrhythmia, High Cholesterol, Hypertension Respiratory History: No Pertinent History Endocrine Medical History: No Pertinent History Musculoskeletal History: Arthritis GI Medical History: Hernia History: No Pertinent History Psycho-Social History: Anxiety, Depression Male Reproductive Disorders: No Pertinent History Other Medical History: 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 REPORTS SLIPPED DISK AT L4,L5, AND S1 (UNDERWENT PT FOR LE STRENGTHENING WITH SUCCESS). SPINA BIFIDA OCULTA - Past Surgical History Past Surgical History: Yes Neuro Surgical History: No Pertinent History Cardiac: No Pertinent History Respiratory: No Pertinent History Gastrointestinal: No Pertinent History Genitourinary: No Pertinent History Musculoskeletal: No Pertinent History, Orthopedic Surgery Male Surgical History: No Pertinent History Other Surgical History: tonsils - Social History Smoking Status: Current every day smoker How long have you smoked: 11yo Exposure to second hand smoke: Yes Drug Use: none Patient Lives Alone: No - Nursing Vital Signs Nursing Vital Signs: Initial Vital Signs Temperature 98.1 F 11/20/23 20:29 Pulse Rate 70 11/20/23 20:29 Respiratory Rate 20 11/20/23 20:29 Blood Pressure 146/87 11/20/23 20:29 O2 Sat by Pulse Oximetry 95 11/20/23 20:29 Pain Scale Pain Intensity 8 - Physical Exam Vision Acuity Degree Evaluation Phase: Uncorrected Vision Acuity Right Eye: 20/30 Vision Acuity Left Eye: unable to visualize any letter due to excessive tearing and blurry vision Eye Exam: left eye: conjunctival inflammation, corneal abrasion (Two corneal abrasions over lateral aspect of iris ~ 1 mm & 1.5 mm), bilateral eye: PERRL, EOMI Ears, Nose, Throat Exam: pharynx normal, TM abnormal (R) (red), TM abnormal (L) (red) Neck Exam: normal inspection Respiratory Exam: lungs clear Cardiovascular Exam: normal heart sounds Gastrointestinal Exam: normal bowel sounds Neurologic: alert, cooperative SpO2 Interpretation: normal SpO2: 95 O2 Delivery: Room Air - Course Nursing assessment & vital signs reviewed: Yes Ordered Tests: Medication Summary Discontinued Medications Generic Name Dose Route Start Last Admin Trade Name Freq PRN Reason Stop Dose Admin Azithromycin 500 mg 11/20/23 21:28 Azithromycin 250 Mg Tablet PO 11/20/23 21:29 STAT ONE Ciprofloxacin 2.5 ml 11/20/23 21:29 Ciprofloxacin Hcl 2.5 Ml Bottle OP 11/20/23 21:30 STAT ONE Fluorescein Sodium Confirm 11/20/23 20:41 Fluorescein Sodium 1 Mg/Strip Strip Administered 11/20/23 20:42 Dose 1 mg OP .STK-MED ONE Fluorescein Sodium 1 mg 11/20/23 21:29 Fluorescein Sodium 1 Mg/Strip Strip OP 11/20/23 21:30 STAT ONE Tetracaine HCl Confirm 11/20/23 20:41 Tetracaine Hcl/Pf 4 Ml Bottle Administered 11/20/23 20:42 Dose 4 ml OP .STK-MED ONE Tetracaine HCl 4 ml 11/20/23 21:29 Tetracaine Hcl/Pf 4 Ml Bottle OP 11/20/23 21:30 STAT STA - Progress Progress: improved Counseled pt/family regarding: diagnosis, need for follow-up - Departure Departure Disposition: Home Clinical Impression: Corneal abrasions of left eye, Conjunctivitis of left eye, Bilateral Otitis Media Condition: Stable Critical Care Time: No Referrals: DAMON CHING DO [Primary Care Provider] - Follow up/PCP as directed Instructions: Conjunctivitis (pink eye), Corneal Abrasion ED Additional Instructions: Follow up with private doctor tomorrow. Follow up with eye doctor tomorrow. Forms: Work/School Release Form Prescriptions: Ciprofloxacin HCl [Ciloxan] 3.5 gm OP Q4H #1 Azithromycin 250 mg [Zithromax 250 MG TABLET] 250 mg PO ZPACK #6 tablet
[2023-11-20] MEDS: Fluor-I-Strip/Ful-Flo OP ONE (21:50)
[2023-11-20] MEDS: TETRACAINE 0.5% STERI-UNIT SOL OP STA (21:51)
[2023-11-20] MEDS ORDERED: Zithromax 250 MG TABLET ONE ×2 (21:54→21:59)
[2023-11-20] MEDS ORDERED: CIPROFLOXACIN HCL OP ONE (21:54)
[2023-11-20] MEDS: CIPROFLOXACIN HCL OP ONE (21:56)
[2023-11-20] MEDS: Zithromax 250 MG TABLET PO ONE (21:56)
[2023-11-20 22:17] VITALS: BP 132/88; PULSE 72
== END 2023-11-20 22:17 | disposition home or self-care (01) ==
LOC: ED 20:08
DX: S05.02XA Injury of conjunctiva and corneal abrasion without foreign body, left eye, initial encounter (principal); W50.4XXA Accidental scratch by another person, initial encounter; H10.9 Unspecified conjunctivitis; H66.93 Otitis media, unspecified, bilateral; E78.5 Hyperlipidemia, unspecified; I10 Essential (primary) hypertension; Z79.891 Long term (current) use of opiate analgesic; Z79.899 Other long term (current) drug therapy; Z72.0 Tobacco use
CPT/HCPCS: 99283; A9270-GY

== ENCOUNTER 2024-01-23 15:29 | Emergency (ER) | payer OTHER ==
--- NOTE | 2024-01-23 15:32 | ERPHSYRPT ---
- History of Present Illness Time Seen by Provider: 01/23/24 15:32 Source: patient, family Exam Limitations: no limitations Physician History: Is a 38-year-old white male patient who came in by private vehicle escorted by the patient's . Patient was using a metal fabricator prior to arrival and is concerned that he may have a piece of metal in his right eye. The patient does not have pain in his right eye and there is no change in his vision. However, when he opens and closes his eyelids he feels a scratching/foreign body sensation in the 11 to 12 o'clock position. Patient has a history of peripheral neuropathy, seizure disorder, hypertension, hyperlipidemia and anxiety. Timing/Duration: today Location: right eye Severity: mild Apparent Injury: possibly Associated Symptoms: foreign body sensation, No pain, No sensitivity to light, No matting, No eyelid swelling, No blurred vision, No double vision Visual Assistive Devices: None Chemical Exposure: No Trauma: No Welding Arc/Tanning Bed Exposure: No Allergies/Adverse Reactions: hydromorphone [From Dilaudid] Adverse Reaction (Verified 01/23/24 15:47) Home Medications: Acyclovir 800 mg PO BID 01/20/16 [History] levETIRAcetam [Levetiracetam] 1,000 mg PO BID 10/13/17 [History] Loratadine [Claritin] 10 mg PO DAILY 05/31/19 [History] Losartan Potassium 25 mg PO DAILY 05/31/19 [History] Metoprolol Tartrate 25 mg PO DAILY 05/31/19 [History] Omeprazole 40 mg PO QAM 05/31/19 [History] buPROPion HCL [Bupropion HCl ER] 150 mg PO BID 05/31/19 [History] Atorvastatin Calcium 40 mg PO DAILY 03/12/21 [History] Calcium Carbonate/Vitamin D3 [Calcium 500 mg-Vit D3 600 Unit] 1 tab PO BID 11/07/22 [History] Hydrocodone/Acetaminophen [Hydrocodone-Acetamin 5-325 mg] 1 tab PO TID 11/07/22 [History] Ubidecarenone [Co Q-10] 100 mg PO DAILY 11/07/22 [History] Buprenorphine [Butrans] 1 patch TOP WEEKLY 05/06/23 [History] Cetirizine HCl [24Hour Allergy] 10 mg PO DAILY 07/05/23 [History] Hx Tetanus, Diphtheria Vaccination/Date Given: Yes Hx Influenza Vaccination/Date Given: No Hx Pneumococcal Vaccination/Date Given: No Travel Risk - International Travel Have you traveled outside of the country in past 3 weeks: No - Emerging Infectious Disease Are you exhibiting symptoms associated with any current EIDs: No - Review of Systems Constitutional: No Symptoms Eyes: Foreign Body Sensation Ears, Nose, & Throat: No Symptoms Respiratory: No Symptoms (Right eye) Cardiac: Orthopnea Abdominal/Gastrointestinal: No Symptoms Genitourinary Symptoms: No Symptoms Musculoskeletal: No Symptoms Skin: No Symptoms Neurological: No Symptoms Psychological: No Symptoms Endocrine: No Symptoms Hematologic/Lymphatic: No Symptoms Immunological/Allergic: No Symptoms All Other Systems: Reviewed and Negative - Past Medical History Pertinent Past Medical History: Yes Neurological History: Peripheral Neuropathy, Seizures ENT History: No Pertinent History Cardiac History: Arrhythmia, High Cholesterol, Hypertension Respiratory History: No Pertinent History Endocrine Medical History: No Pertinent History Musculoskeletal History: Arthritis GI Medical History: Hernia History: No Pertinent History Psycho-Social History: Anxiety, Depression Male Reproductive Disorders: No Pertinent History Other Medical History: 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 REPORTS SLIPPED DISK AT L4,L5, AND S1 (UNDERWENT PT FOR LE STRENGTHENING WITH SUCCESS). SPINA BIFIDA OCULTA - Past Surgical History Past Surgical History: Yes Neuro Surgical History: No Pertinent History Cardiac: No Pertinent History Respiratory: No Pertinent History Gastrointestinal: No Pertinent History Genitourinary: No Pertinent History Musculoskeletal: No Pertinent History, Orthopedic Surgery Male Surgical History: No Pertinent History Other Surgical History: tonsils - Social History Smoking Status: Current every day smoker How long have you smoked: 11yo Exposure to second hand smoke: Yes Drug Use: none Patient Lives Alone: No - Social Determinants of Health Will the patient participate in the screening: Yes Do you worry about a steady place to live?: No In the past 12 months,have you had to go without utilities?: No Transportation Issues: No Has anyone in your support network made you feel unsafe?: No Have you or anyone in your house had to go without enough: No - Nursing Vital Signs Nursing Vital Signs: Initial Vital Signs Temperature 97.6 F 01/23/24 15:51 Pulse Rate 107 H 07/22/24 15:51 Respiratory Rate 18 01/23/24 15:51 Blood Pressure 116/98 01/23/24 15:51 O2 Sat by Pulse Oximetry 98 01/23/24 15:51 Pain Scale Pain Intensity 0 - Physical Exam General Appearance: no apparent distress, alert, anxiety, thin Eye Exam: right eye: corneal abrasion, bilateral eye: normal inspection, PERRL, EOMI Ears, Nose, Throat Exam: normal ENT inspection, moist mucous membranes Neck Exam: normal inspection, non-tender, supple, full range of motion Respiratory Exam: airway intact, No chest tenderness, No respiratory distress Gastrointestinal Exam: No tenderness Extremity Exam: normal inspection, normal range of motion, pelvis stable Neurologic: alert, oriented x 3, cooperative, 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 No visible foreign body present with the naked eye, with the magnifying glass or during the fluorescein test. - Course Nursing assessment & vital signs reviewed: Yes Ordered Tests: Medication Summary Discontinued Medications Generic Name Dose Route Start Last Admin Trade Name Freq PRN Reason Stop Dose Admin Erythromycin 1 gm 01/23/24 16:04 Erythromycin Base 1 Gm Tube Eye Ointment OP 01/23/24 16:05 STAT STA Eye Irrigation Solution Confirm 01/23/24 15:53 Sodium/Potassium/Petar/Magnesium 30 Ml Eye Wash Administered 01/23/24 15:54 Dose 30 ml .ROUTE .STK-MED ONE Fluorescein Sodium Confirm 01/23/24 15:53 Fluorescein Sodium 1 Mg/Strip Strip Administered 01/23/24 15:54 Dose 1 mg OP .STK-MED ONE Tetracaine HCl Confirm 01/23/24 15:53 Tetracaine Hcl/Pf 4 Ml Bottle Administered 01/23/24 15:54 Dose 4 ml OP .STK-MED ONE - Progress Progress: improved, re-examined Progress Note: 01/23/24 16:12 Medical decision making and the assignment of low to moderate complexity is based on review of the patient's past medical history, reviewed the patient's medication list, reviewed patient drug allergy list, history presence of physical findings on examination. Their workup in this patient does not require any lab or radiographic studies. Medical Desision Making - Independent Historian Additional History obtained from: Spouse - Diagnostic Testing Diagnostic test were ordered, analyzed, and reviewed by me: No - Risk of complications The pt has a mod risk of morbidity or mortality based on: Need for prescription drug management - Departure Departure Disposition: Home Clinical Impression: Corneal abrasion, right Condition: Stable Critical Care Time: No Referrals: DAMON CHING DO [Primary Care Provider] - Follow up/PCP as directed Additional Instructions: Ear protective goggles whenever using ear wood or metal fabricator or alireza. Use Tylenol and ibuprofen for pain control. Use your antibiotic ointment as prescribed. For worsening or persistent symptoms, follow-up with an owner operator tanker truck driver or chocolate dipper. Prescriptions: Erythromycin Base 3.5 gm [Erythromycin 3.5 GM OPHTH.] 3.5 gm OP QID #1 unit
[2024-01-23 15:52] VITALS: BP 116/98; PULSE 107; RESP 18; TEMP 97.6; O2SAT 98
[2024-01-23] MEDS ORDERED: Eye-Stream Solution ONE (15:53)
[2024-01-23] MEDS ORDERED: TETRACAINE 0.5% STERI-UNIT SOL OP ONE (15:53)
[2024-01-23] MEDS ORDERED: Fluor-I-Strip/Ful-Flo OP ONE (15:53)
[2024-01-23] MEDS ORDERED: Erythromycin 1 GM ONE (16:09)
[2024-01-23] MEDS: Erythromycin 1 GM OP STA (16:13)
[2024-01-23] MEDS: Eye-Stream Solution OP ONE (16:13)
[2024-01-23] MEDS: Fluor-I-Strip/Ful-Flo OP ONE (16:14)
[2024-01-23] MEDS: TETRACAINE 0.5% STERI-UNIT SOL OP STA (16:14)
== END 2024-01-23 16:40 | disposition home or self-care (01) ==
LOC: ED 15:29
DX: S05.01XA Injury of conjunctiva and corneal abrasion without foreign body, right eye, initial encounter (principal); W20.8XXA Other cause of strike by thrown, projected or falling object, initial encounter; E78.5 Hyperlipidemia, unspecified; I10 Essential (primary) hypertension; Z79.899 Other long term (current) drug therapy; Z72.0 Tobacco use
CPT/HCPCS: 99281; A9270-GY